=== PATIENT | female | born 1935 | race Caucasian/White ===

== ENCOUNTER 2017-02-01 10:15 | Inpatient (IN) | payer MEDICARE ==
[2017-02-09] MEDS ORDERED: CEFAZOLIN/Water 2 GM/20 ML SYRINGE ONE (06:18)
[2017-02-09] MEDS ORDERED: Bacitracin Zinc Ointment 30 gm TUBE ONE (06:37)
[2017-02-09] MEDS ORDERED: Sodium Chloride 0.9% 10 ML ONE (06:37)
[2017-02-09] MEDS ORDERED: Thrombin 5000 UNITS/5 ML VIAL ONE (06:37)
[2017-02-09] MEDS ORDERED: Bupivacaine/Epinephrine 0.25% 30 ML VIAL ONE (06:37)
[2017-02-09] MEDS ORDERED: Lidocaine 1% w/Epinephrine 1:200K 30 ML VIAL ONE (06:51)
[2017-02-09] MEDS ORDERED: Fentanyl 100 MCG/2 ML VIAL ONE ×2 (07:19→09:41)
[2017-02-09] MEDS ORDERED: Phenylephrine 10 MG/NS 250 ML 250 ML ONE (07:19)
[2017-02-09] MEDS ORDERED: SUGAMMADEX SODIUM 200 MG/2 ML VIAL ONE (09:25)
[2017-02-09] MEDS ORDERED: Docusate 100 MG CAP PO PRN (09:29)
[2017-02-09] MEDS ORDERED: Mag-Al 1200 mg/1200 mg/30 ML UDCUP PO PRN (09:29)
[2017-02-09] MEDS ORDERED: Acetaminophen 325 MG TAB PO PRN (09:29)
[2017-02-09] MEDS ORDERED: Fleet Enema 133 ML BOT PR PRN (09:29)
[2017-02-09] MEDS ORDERED: Labetalol HCl 100 MG/20 ML VIAL ONE ×2 (09:36→14:13)
[2017-02-09] MEDS ORDERED: Ondansetron HCl/PF 4 MG/2 ML Vial IVP PRN (09:39)
[2017-02-09] MEDS ORDERED: Promethazine HCl 25 MG/ML VIAL SLOW IVP PRN (09:39)
[2017-02-09] MEDS ORDERED: Promethazine HCl 25 MG/ML VIAL IM PRN (09:39)
[2017-02-09] MEDS ORDERED: Morphine PF 1 MG/ML SYR IVP PRN (10:07)
--- NOTE | 2017-02-09 10:35 | OP ---
DATE OF PROCEDURE: 02/09/2017 SURGEON: Ellis Mayo M.D. FAMILY SERVICE ASSISTANT: Emanuel Guzman PA-C. OR: OR #12 WOUND TYPE: Type 1 wound. This surgery was done also with Dr. Piter Magallanes for the abdominal access. PREPROCEDURE DIAGNOSIS: Normal pressure hydrocephalus. POSTPROCEDURE DIAGNOSIS: Normal pressure hydrocephalus. PROCEDURE: Placement of right frontal ventriculoperitoneal shunt with programmable valve set at 1.0. PROCEDURE: After informed consent was obtained from the patient and her son, the patient was brought to OR 12. Proper patient pause and identification was carried out. The right frontal and right pos tauricular, right cervical, thoracic, and abdominal region were all sterilely cleansed, prepared, and draped following the clipping of hair. Right frontal Warren's point was identified and a semilunar incision drawn out along with a small incision drawn out in the postauricular side on the right side. Dr. Magallanes will dictate his portion of the surgery. After proper patient pause and identification , the right frontal wound and right postauricular wounds were opened, retractor placed in a lauren hole fashion. The dura coagulated. A peritoneal tube was then passed with a shunt passer from the posta uricular wound to the abdominal cavity and the peritoneal catheter placed into the abdominal region w ith Dr. Magallanes's assistance. I then brought the proximal end of the peritoneal catheter to the rig t frontal lauren hole and secured a programmable valve, Strata programmable valve to the catheter. The dura was then opened, the alea coagulated and a ventricular catheter placed with return of CSF. This was secured to the proximal portion of the valve. Copious irrigation occurred throughout and CSF fl ow was confirmed. The wounds were all closed in anatomic layers following meticulous hemostasis. Th e patient then emerged from anesthesia.
[2017-02-09] MEDS: Sodium Chloride 0.9% 1,000 ML IV SCH ×2 (11:46→22:45)
[2017-02-09] MEDS: HYDROcodone/Acetaminophen 7.5/325 mg Tablet PO PRN (13:35)
[2017-02-09] MEDS: CEFAZOLIN/Water 2 GM/20 ML SYRINGE SLOW IVP SCH ×2 (13:36→22:40)
[2017-02-09] MEDS ORDERED: Glycopyrrolate 0.2 MG/ML 5 ML SYRINGE ONE (14:13)
[2017-02-09] MEDS ORDERED: Propofol 200 MG/20 ML VIAL ONE (14:13)
[2017-02-09] MEDS ORDERED: Lidocaine 1% PF 5 ML VIAL ONE (14:13)
[2017-02-09] MEDS ORDERED: Ondansetron HCl/PF 4 MG/2 ML Vial ONE (14:13)
[2017-02-09] MEDS ORDERED: Esmolol 100 MG/10 ML VIAL ONE (14:13)
[2017-02-09] MEDS ORDERED: ePHEDrine/0.9% NaCl/PF SYRINGE 50 mg/10 ml ONE (14:13)
[2017-02-09] MEDS: Promethazine HCl 25 MG/ML VIAL IM PRN (16:07)
[2017-02-09] MEDS: Atorvastatin Calcium 10 MG TAB PO SCH (20:13)
[2017-02-09] MEDS ORDERED: FLU VACC TS2017-18 (>65YR) 0.5 ML SYRINGE IM ONE (21:00)
--- NOTE | 2017-02-09 21:39 | OP ---
DATE OF PROCEDURE: 02/09/2017 PREOPERATIVE DIAGNOSIS: Hydrocephalus. POSTOPERATIVE DIAGNOSIS: Hydrocephalus. PROCEDURE: Diagnostic laparoscopy placement of permanent intraabdominal drain (abdominal portion of PROCESS COACH shunt). SURGEON: Devon Magallanes M.D. ANESTHESIA: General. ESTIMATED BLOOD LOSS: Minimal. COMPLICATIONS: None. SPECIMEN: None. FINDINGS: The tip of the PROCESS COACH shunt is up over the liver. TECHNIQUE: The patient was taken to the operating room and placed supine on the table. After genera l anesthetic was obtained, scalp, chest, abdomen, and pelvis were all irrigated using sterile solutio n. Curved incision made below the umbilicus. Cautery was used to dissect down to and score the fasc ia. Abdominal cavity was entered bluntly using a Vanessa clamp. Holding stitch of PDS was placed on e ach side of the fascia, a 5 mm trocar was placed. High-flow pneumoperitoneum was obtained. Left abd ominal 5-mm port was placed as well. The PROCESS COACH shunt scalp portion was performed by Neurosurgery and th e tubing passed to the upper abdomen. Here, a counterincision was made and the 5 mm trocar was used to make entrance into the abdominal cavity. Hemostat was used to pass the tubing into the upper abdo men was placed up over the liver. It was pulled into the abdomen as the redundancy in the tubing is less than by Neurosurgery above. Once all the redundant tubing was pulled into the abdomen and Dr. Nieves taylor is happy from the on head side. Both port sites were infiltrated using local anesthetic. Ther e was no obvious bleeding in the abdomen or damage to any intraabdominal structures. Ports were celeste maria l under direct visualization without bleeding. Pneumoperitoneum was let down. PDS was used to ajay se the fascial defect below the umbilicus. All incisions were irrigated and closed using 4-0 Monocry l and Dermabond. The patient went to recovery in stable condition. All instrument counts, needle co unts, and lap counts were correct.
[2017-02-10] MEDS: Sodium Chloride 0.9% 1,000 ML IV SCH ×2 (01:07→18:43)
[2017-02-10] MEDS: CEFAZOLIN/Water 2 GM/20 ML SYRINGE SLOW IVP SCH (05:47)
[2017-02-10] MEDS: HYDROcodone/Acetaminophen 7.5/325 mg Tablet PO PRN (07:44)
[2017-02-10] MEDS ORDERED: Ondansetron HCl/PF 4 MG/2 ML Vial SLOW IVP PRN (08:25)
[2017-02-10] MEDS ORDERED: VIT D3 PO SCH (09:00)
[2017-02-10] MEDS ORDERED: [UNRECOGNIZED DRUG - OTHER] PO SCH (09:00)
[2017-02-10] MEDS ORDERED: BERBERINE HCL PO SCH (09:00)
[2017-02-10] MEDS ORDERED: [UNRECOGNIZED DRUG - OTHER] PO SCH (09:00)
[2017-02-10] MEDS ORDERED: HOPS PO SCH (09:00)
--- NOTE | 2017-02-10 09:02 | PRG ---
DATE OF SERVICE: 02/10/2017 Ms. Fine is postoperative day 1 from right frontal ventriculoperitoneal shunt for normal pressu re hydrocephalus. Her shunt is set at 1.0. She has no complaints this morning except for incisional pain as expected. Her wounds are healing well. Neurologically appears a bit more interactive comp ared to before surgery already. We will transfer her to the floor, she lives with family. We will m keshav sure that there are no needs at home from a social work standpoint. I anticipate dismissal in next 24-48 hours.
[2017-02-10] MEDS ORDERED: Clopidogrel Bisulfate 75 MG TAB ONE (09:09)
[2017-02-10] MEDS: Donepezil HCl 5 MG TAB PO SCH (09:11)
[2017-02-10] MEDS: Lisinopril 20 MG TAB PO SCH (09:22)
[2017-02-10] MEDS: Promethazine HCl 25 MG/ML VIAL IM PRN (11:07)
[2017-02-10] MEDS ORDERED: Insulin Regular 300 UNITS/3 ML VIAL SC PRN (12:20)
[2017-02-10] MEDS ORDERED: Dextrose 5% in Water 1,000 ML IV PRN (12:20)
[2017-02-10] MEDS ORDERED: Dextrose 50% Abboject 50 ML SYRINGE SLOW IVP PRN (12:20)
[2017-02-10] MEDS: traMADol HCl 50 MG TAB PO PRN (13:22)
[2017-02-10] MEDS: hydrALAZINE 20 MG/ML VIAL SLOW IVP PRN ×2 (14:29→22:26)
[2017-02-10] MEDS: Ondansetron HCl/PF 4 MG/2 ML Vial SLOW IVP PRN ×2 (15:28→22:26)
[2017-02-10] MEDS ORDERED: Cyanocobalamin (Vitamin B-12) 1,000 MCG TAB PO SCH (15:30)
[2017-02-10 15:36] LABS: #Lymphocytes 0.6 thou/uL (1.20-3.40); #Monocytes 0.3 thou/uL (0.11-0.59); #Neutrophils 11.8 thou/uL (1.40-6.50); %Eosinophils 0.2 % (0.0-10.0); %Monocytes 2.5 % (0.0-10.0); Hematocrit 40.2 % (36.0-47.0); Mean Platelet Volume 7.6 fL (7.4-10.4); Red Blood Cell (RBC) Count 4.16 mill/uL (4.20-5.40); White Blood Cell (WBC) Count 12.8 thou/uL (4.8-10.8)
[2017-02-10 16:00] LABS: ALT (SGPT) Less than 7 U/L (8-55); AST (SGOT) 10 U/L (5-34); Alkaline Phosphatase 66 U/L (40-150); Anion Gap 14 mmol/L (10-20); BUN (Urea Nitrogen) 17 mg/dL (9.8-20.1); Bilirubin, Total 0.8 mg/dL (0.2-1.2); Calc. Creatinine Clearance 74 mL/min (70-130); Calcium 9.4 mg/dL (7.8-10.44); Carbon Dioxide 22 mmol/L (23-31); Chloride 103 mmol/L (98-107); Estimated GFR-MDRD 73; Magnesium 1.8 mg/dL (1.6-2.6); Phosphorus 2.3 mg/dL (2.3-4.7); Protein, Total 6.7 g/dL (6.0-8.3)
--- NOTE | 2017-02-10 16:11 | RAD ---
PORTABLE SUPINE ABDOMEN: 02/10/17 HISTORY: Nausea. Bowel gas pattern unremarkable. Scattered stool and gas seen throughout the colon to the level of the rectum. No significant small bowel gas noted. No mass effect or abnormal calcification identified. IMPRESSION: Unremarkable bowel gas pattern. POS: REEMA
[2017-02-10] MEDS: Insulin Regular 300 UNITS/3 ML VIAL SC PRN (16:24)
--- NOTE | 2017-02-10 18:40 | PDOC.PN ---
- Subjective Encounter Start Date: 02/10/17 Encounter Start Time: 16:00 Patient seen and examined. Consult for med mngt. Nauseas - No vomiting. Mild gen abd pain. No fever/diarrhea. No overnight events - Objective Resuscitation Status: Resuscitation Status DNR:Do Not Resuscitate MAR Reviewed: Yes Vital Signs & Weight: Vital Signs (12 hours) Temp Pulse Pulse Pulse Resp BP BP 02/10/17 16:00 98.3 F 02/10/17 14:29 70 02/10/17 13:00 98.4 F 02/10/17 09:25 73 76 188/65 H 164/59 H 02/10/17 08:00 98.5 F 70 20 02/10/17 07:00 98.5 F Pulse Ox 02/10/17 16:00 02/10/17 14:29 02/10/17 13:00 02/10/17 09:25 02/10/17 08:00 97 02/10/17 07:00 Weight Weight 184 lb 1.376 oz Most Recent Monitor Data Heart Rate from ECG 91 NIBP 173/53 NIBP BP-Mean 126 Respiration from ECG 21 SpO2 98 I&O: 02/09/17 02/10/17 02/11/17 06:59 06:59 06:59 Intake Total 2153 719 Output Total 1999 103 Balance 153 616 Result Diagrams: 02/10/17 15:24 02/10/17 15:24 Additional Labs: Accuchecks 02/10/17 11:13 POC Glucose 234 H Radiology Reviewed by me: Yes (KUB - Neg) EKG Reviewed by me: Yes (Tele SR) Phys Exam - Physical Examination Constitutional: NAD Respiratory: no wheezing, no rales, no rhonchi, clear to auscultation bilateral Cardiovascular: RRR, no rub no heaves/pulsations Gastrointestinal: soft, no distention, positive bowel sounds mild gen tend, no rebound/guarding Musculoskeletal: no edema Neurological: non-focal, normal sensation, moves all 4 limbs Psychiatric: normal affect, A&O x 3 Dx/Plan - Plan DVT proph w/SCDs IMPRESSION: 1. DM2 2. HTN 3. HLD 4. Nausea 5. DNR 6. CKD 2 7. Vit B12 def PLAN: * Stat labs done/reviewed * Cont Zofran PRN * Add sliding scale - change XL Glipizide to short acting due to poor appetite. * DNR confirmed with son at bedside * KUB done/reviewed * Cont to monitor * Add Vit B12 * Will follow. Thank you for this consultation Review of Systems - Review of Systems Constitutional: negative: Fever, Chills, Sweats, Weakness, Malaise, Other Respiratory: negative: Cough, Dry, Shortness of Breath, Hemoptysis, SOB with Excertion, Pleuritic Pain, Sputum, Wheezing Cardiovascular: negative: Chest Pain, Palpitations, Orthopnea, Paroxysmal Noc. Dyspnea, Edema, Light Headedness - Medications/Allergies Allergies/Adverse Reactions: Allergies Allergy/AdvReac Type Severity Reaction Status Date / Time No Known Allergies Allergy Verified 02/01/17 11:08 Medications: Current Medications Acetaminophen (Tylenol) 650 mg PO Q4H PRN PRN Reason: Headache/Fever Or Mild Pain Hydrocodone Bitart/Acetaminophen ([place] 7.5/325) 1 tab PO Q4H PRN PRN Reason: Moderate Pain (4-6) Last Admin: 02/10/17 07:44 Dose: 1 tab Al Hydroxide/Mg Hydroxide (Maalox) 30 ml PO Q6H PRN PRN Reason: Indigestion Atorvastatin Calcium (Lipitor) 10 mg PO HS [facility] Last Admin: 02/09/17 20:13 Dose: 10 mg Cyanocobalamin (Vitamin B-12) 1,000 mcg PO DAILY [facility] Dextrose/Water (Dextrose 50%) 25 gm SLOW IVP PRN PRN PRN Reason: Hypoglycemia Docusate Sodium (Colace) 100 mg PO BID NIKIA Donepezil HCl (Aricept) 5 mg PO QAM [facility] Last Admin: 02/10/17 09:11 Dose: 5 mg Glipizide (Glucotrol Xl) 5 mg PO QAM [facility] Last Admin: 02/10/17 09:11 Dose: 5 mg Glucagon (Glucagon) 1 mg IM PRN PRN PRN Reason: Hypoglycemia Hydralazine HCl (Apresoline) 10 mg SLOW IVP Q4H PRN PRN Reason: SBP GREATER THAN 160 Last Admin: 02/10/17 14:29 Dose: 10 mg Sodium Chloride (Normal Saline 0.9%) 1,000 mls @ 75 mls/hr IV .[id number] [facility] Last Admin: 02/10/17 01:07 Dose: 1,000 mls Dextrose/Water (D5w) 1,000 mls @ 0 mls/hr IV .Q0M PRN; As Directed PRN Reason: Hypoglycemia Insulin Human Regular (Humulin R) 0 units SC .MILD SLIDING SCALE PRN PRN Reason: Mild Correctional Scale Last Admin: 02/10/17 16:24 Dose: 4 unit Insulin Human Regular (Humulin R) 0 units SC .BEDTIME SLIDING SC PRN PRN Reason: Bedtime Correctional Scale Lisinopril (Zestril) 20 mg PO QAM [facility] Last Admin: 02/10/17 09:22 Dose: 20 mg Morphine Sulfate (Duramorph) 2 mg IVP Q1H PRN PRN Reason: Severe Pain (7-10) Ondansetron HCl (Zofran) 4 mg SLOW IVP Q6H PRN PRN Reason: Nausea/Vomiting Last Admin: 02/10/17 15:28 Dose: 4 mg Promethazine HCl (Phenergan) 12.5 mg IM Q6H PRN PRN Reason: Nausea/Vomiting Last Admin: 02/10/17 11:07 Dose: 12.5 mg Sodium Biphosphate/Sodium Phosphate (Fleet Enema) 133 ml LA ONE PRN PRN Reason: Constipation Stop: 02/13/17 15:00 Sodium Chloride (Flush - Normal Saline) 10 ml IVF PRN PRN PRN Reason: Saline Flush Tramadol HCl (Ultram) 50 mg PO Q6H PRN PRN Reason: Pain Last Admin: 02/10/17 13:22 Dose: 50 mg
[2017-02-10] MEDS: Atorvastatin Calcium 10 MG TAB PO SCH (20:31)
[2017-02-10] MEDS: Docusate 100 MG CAP PO SCH (20:31)
[2017-02-11] MEDS: hydrALAZINE 20 MG/ML VIAL SLOW IVP PRN ×3 (05:48→16:03)
[2017-02-11] MEDS: Sodium Chloride 0.9% 1,000 ML IV SCH ×2 (05:49→17:17)
[2017-02-11] MEDS: Donepezil HCl 5 MG TAB PO SCH (09:08)
[2017-02-11] MEDS: Lisinopril 20 MG TAB PO SCH (09:08)
[2017-02-11] MEDS: Docusate 100 MG CAP PO SCH ×2 (09:08→19:59)
[2017-02-11] MEDS: glipiZIDE 5 MG TAB PO SCH (09:08)
[2017-02-11] MEDS: Cyanocobalamin (Vitamin B-12) 1,000 MCG TAB PO SCH (09:12)
--- NOTE | 2017-02-11 10:22 | PRG ---
DATE OF SERVICE: 02/11/2017 Ms. Fine is postoperative day 2 from placement of a ventriculoperitoneal shunt for hydrocephalu s. She states her headache and nausea are improved today. She did have a headache, nausea, and vomi ting yesterday. Her wounds are healing well. Neurologically, she is alert and follows commands. I think at this point she has not yet mobilized due to nausea and I think we should work on rehab for t he patient.
[2017-02-11] MEDS: Ondansetron HCl/PF 4 MG/2 ML Vial SLOW IVP PRN ×2 (10:35→16:03)
[2017-02-11] MEDS: traMADol HCl 50 MG TAB PO PRN (11:02)
--- NOTE | 2017-02-11 15:38 | CON ---
DATE OF SERVICE: 02/11/2017 SERVICE: Pulmonary Medicine. REASON FOR CONSULTATION: ICU patient. HISTORY OF PRESENT ILLNESS: This is an 81-year-old white female with past medical history significan t for normal pressure hydrocephalus. She was in her usual state of health until several months ago. She started having increasing gait disturbances. She was also incontinent. MRI was consistent with NPH. An LP was attempted, but apparently not much volume was pulled off. We are not certain whethe r or not she is going to respond to volume removal so far as what the relative is suggesting. Either way, she was sent for an elective procedure which was a WATERPROOF BAG SEWER shunt. She is postop day #1 from this pr ocedure. She continues to have persistent headache across the bifrontal region and nausea. She is n ot tolerating much p.o. and IV fluids have been initiated. She remains in the ICU for close observat ion and high requirements for nursing care. PAST MEDICAL HISTORY: 1. Hypertension. 2. Dyslipidemia. 3. Vitamin B12 deficiency. 4. Normal pressure hydrocephalus. PAST SURGICAL HISTORY: 1. Hip replacement, bilateral. 2. Right knee replacement. 3. Appendectomy. SOCIAL HISTORY: Negative for alcohol, tobacco or illicit drug use. FAMILY HISTORY: Noncontributory. ALLERGIES: No known drug allergies. MEDICATIONS: List of inpatient medications were reviewed. No specific updates were made at this ti wa. REVIEW OF SYSTEMS: General, head, ears, eyes, nose, throat, cardiovascular, respiratory, GI, , mus culoskeletal, neurologic and skin is negative except as mentioned in the HPI. PHYSICAL EXAMINATION: VITAL SIGNS: Afebrile, pulse 84, blood pressure 173/59, respirations 17, saturation 94% on room air. GENERAL: The patient is awake and alert, in no apparent distress. LUNGS: Decent air entry with no prolonged expiratory phase, wheezing, rhonchi or crackles. HEART: Normal rate, regular. ABDOMEN: Soft, nontender, nondistended, bowel sounds positive. MUSCULOSKELETAL: No cyanosis or clubbing. There is no pitting in bilateral lower extremities. NEUROLOGIC: Grossly nonfocal. LABORATORY DATA: WBC returning a 12.8 following that procedure, hemoglobin 13.1, platelets 222,000. INR 1.0. Basic metabolic profile and liver function studies were unremarkable. Blood sugars ranged 114-234. IMAGING: Abdominal x-ray demonstrates unremarkable bowel gas pattern. ASSESSMENT: 1. Normal pressure hydrocephalus, status post ventriculoperitoneal drain. 2. Type 2 diabetes mellitus. 3. Dementia. PLAN: We will continue to monitor the patient closely in the ICU. Once she is cleared for transitio n to the floor by Neurosurgery, then she can go. She has no acute cardiac or pulmonary issues. Repe at laboratories will be performed tomorrow morning.
--- NOTE | 2017-02-11 15:51 | CT ---
NONCONTRAST CT HEAD: Date: 02-11-17 History: Mental status change. Hypertension. Patient had ventriculoperitoneal shunt catheter placed o ne day ago. Vomiting. Comparison: MRI brain 11-30-16 FINDINGS: There has been interval placement of a ventriculoperitoneal shunt catheter via a right frontal approa ch with the tip coursing across the midline and the tip at the midline in the region of the septum pe llucidum near the level of the foramen of Monro. The ventricular system has decreased in size compare d to the prior study although there is persistent mild dilatation of the occipital and temporal horns of the left lateral ventricle. There is a right sided subdural collection which was not seen on the prior MRI examination which may represent small subdural hematoma. This measures approximately 5-6 mm in greatest transverse dimensio ns. There also evidence of pneumocephalus. There is slight shift of the midline structures to the lef t. No intraparenchymal hemorrhage is seen. There is no acute infarction identified. Again noted are c hronic small vessel ischemic changes as well as cerebral volume loss. Visualized paranasal sinuses and mastoid air cells are clear. Calvarial structures are intact aside f rom interval placement of ventriculoperitoneal shunt catheter. Skin clips are seen in the scalp soft tissues right anterior frontal region. IMPRESSION: 1. Interval placement of a right sided ventriculoperitoneal shunt catheter as described above with sm all amount of pneumocephalus. 2. Right subdural collection likely related to a small subdural hematoma measuring 5-6 mm in greates t transverse dimensions. There is slight mass effect on the right cerebral sulci with shift of midlin e structures to the left measuring 4 mm. 2. Increased density seen within the central canal at the level of the C1 vertebral body which may re present venous plexus as this circumferentially surrounds the central canal and the spinal cord. Mohr jose, if there is clinical concern, CT versus MRI of the cervical spine could be performed. POS: OFF
[2017-02-11] MEDS: Insulin Regular 300 UNITS/3 ML VIAL SC PRN (17:01)
[2017-02-11] MEDS: Scopolamine 1.5 mg/72 hour Patch TOP SCH (17:04)
[2017-02-11] MEDS: Promethazine HCl 25 MG/ML VIAL IM PRN (17:07)
--- NOTE | 2017-02-11 18:40 | PDOC.PN ---
- Subjective Encounter Start Date: 02/11/17 Encounter Start Time: 18:40 Patient seen and examined. Nausea+. No overnight events - Objective Resuscitation Status: Resuscitation Status DNR:Do Not Resuscitate MAR Reviewed: Yes Vital Signs & Weight: Vital Signs (12 hours) Temp Pulse Resp BP Pulse Ox 02/11/17 16:03 165/46 H 02/11/17 16:00 98.6 F 02/11/17 13:17 165/46 H 02/11/17 12:00 98.4 F 02/11/17 09:08 165/46 H 02/11/17 08:00 97.9 F 77 15 99 Weight Admit Weight 174 lb Weight 174 lb 2.643 oz Most Recent Monitor Data Heart Rate from ECG 101 NIBP 150/44 NIBP BP-Mean 68 Respiration from ECG 15 SpO2 96 I&O: 02/10/17 02/11/17 02/12/17 06:59 06:59 06:59 Intake Total 2153 1584 843 Output Total 1999 103 4 Balance 153 1481 839 Result Diagrams: 02/12/17 04:36 02/12/17 04:36 Additional Labs: Accuchecks 02/11/17 02/11/17 02/11/17 16:59 11:40 05:14 POC Glucose 225 H 186 H 114 H 02/10/17 21:07 POC Glucose 172 H EKG Reviewed by me: Yes (Tele SR) Phys Exam - Physical Examination Constitutional: NAD Respiratory: no wheezing, no rhonchi Cardiovascular: RRR, no rub Gastrointestinal: soft, non-tender, no distention, positive bowel sounds Musculoskeletal: no edema Neurological: moves all 4 limbs Dx/Plan - Plan DVT proph w/SCDs IMPRESSION: 1. DM2 - on sliding scale with Glipizide 2. HTN - uncontrolled. 3. HLD 4. Nausea - ?etio, KUB negative 5. DNR - confirmed 6. CKD 2 7. Vit B12 def - on replacement PLAN: * Add Amlodipine * Cont Zofran PRN * Cont to monitor * Cont other meds as below Review of Systems - Review of Systems Respiratory: negative: Cough, Dry, Shortness of Breath, Hemoptysis, SOB with Excertion, Pleuritic Pain, Sputum, Wheezing Cardiovascular: negative: Chest Pain, Palpitations, Orthopnea, Paroxysmal Noc. Dyspnea, Edema, Light Headedness - Medications/Allergies Allergies/Adverse Reactions: Allergies Allergy/AdvReac Type Severity Reaction Status Date / Time No Known Allergies Allergy Verified 02/01/17 11:08 Medications: Current Medications Acetaminophen (Tylenol) 650 mg PO Q4H PRN PRN Reason: Headache/Fever Or Mild Pain Hydrocodone Bitart/Acetaminophen ([place] 7.5/325) 1 tab PO Q4H PRN PRN Reason: Moderate Pain (4-6) Last Admin: 02/10/17 07:44 Dose: 1 tab Al Hydroxide/Mg Hydroxide (Maalox) 30 ml PO Q6H PRN PRN Reason: Indigestion Atorvastatin Calcium (Lipitor) 10 mg PO HS [facility] Last Admin: 02/10/17 20:31 Dose: Not Given Cyanocobalamin (Vitamin B-12) 1,000 mcg PO DAILY [facility] Last Admin: 02/11/17 09:12 Dose: Not Given Dextrose/Water (Dextrose 50%) 25 gm SLOW IVP PRN PRN PRN Reason: Hypoglycemia Docusate Sodium (Colace) 100 mg PO BID [facility] Last Admin: 02/11/17 09:08 Dose: 100 mg Donepezil HCl (Aricept) 5 mg PO QAM [facility] Last Admin: 02/11/17 09:08 Dose: 5 mg Glipizide (Glucotrol) 5 mg PO DAILY[facility] Last Admin: 02/11/17 09:08 Dose: 5 mg Glucagon (Glucagon) 1 mg IM PRN PRN PRN Reason: Hypoglycemia Hydralazine HCl (Apresoline) 10 mg SLOW IVP Q4H PRN PRN Reason: SBP GREATER THAN 160 Last Admin: 02/11/17 16:03 Dose: 10 mg Sodium Chloride (Normal Saline 0.9%) 1,000 mls @ 75 mls/hr IV .[id number] [facility] Last Admin: 02/11/17 17:17 Dose: 1,000 mls Dextrose/Water (D5w) 1,000 mls @ 0 mls/hr IV .Q0M PRN; As Directed PRN Reason: Hypoglycemia Insulin Human Regular (Humulin R) 0 units SC .MILD SLIDING SCALE PRN PRN Reason: Mild Correctional Scale Last Admin: 02/11/17 17:01 Dose: 3 unit Insulin Human Regular (Humulin R) 0 units SC .BEDTIME SLIDING SC PRN PRN Reason: Bedtime Correctional Scale Lisinopril (Zestril) 20 mg PO QAM [facility] Last Admin: 02/11/17 09:08 Dose: 20 mg Morphine Sulfate (Duramorph) 2 mg IVP Q1H PRN PRN Reason: Severe Pain (7-10) Ondansetron HCl (Zofran) 4 mg SLOW IVP Q6H PRN PRN Reason: Nausea/Vomiting Last Admin: 02/11/17 16:03 Dose: 4 mg Promethazine HCl (Phenergan) 12.5 mg IM Q6H PRN PRN Reason: Nausea/Vomiting Last Admin: 02/11/17 17:07 Dose: 12.5 mg Scopolamine (Transderm Scop) 1.5 mg TOP Q3D [facility] Last Admin: 02/11/17 17:04 Dose: 1.5 mg Sodium Biphosphate/Sodium Phosphate (Fleet Enema) 133 ml [place] ONE PRN PRN Reason: Constipation Stop: 02/13/17 15:00 Sodium Chloride (Flush - Normal Saline) 10 ml IVF PRN PRN PRN Reason: Saline Flush Tramadol HCl (Ultram) 50 mg PO Q6H PRN PRN Reason: Pain Last Admin: 02/11/17 11:02 Dose: 50 mg
[2017-02-11] MEDS ORDERED: Amlodipine 5 MG TAB PO SCH (18:45)
[2017-02-11] MEDS ORDERED: Nitroglycerin 2% Ointment 1 INCH/1 GM Packet TOP PRN (18:54)
[2017-02-11] MEDS: Atorvastatin Calcium 10 MG TAB PO SCH (19:59)
[2017-02-11] MEDS ORDERED: cloNIDine 0.1mg/24 Hour PATCH TD SCH (20:00)
[2017-02-12] MEDS: hydrALAZINE 20 MG/ML VIAL SLOW IVP PRN ×4 (00:11→17:08)
[2017-02-12] MEDS: Ondansetron HCl/PF 4 MG/2 ML Vial SLOW IVP PRN ×2 (00:13→10:16)
[2017-02-12] MEDS: Promethazine HCl 25 MG/ML VIAL IM PRN ×2 (01:42→10:32)
[2017-02-12 04:52] LABS: #Lymphocytes 0.7 thou/uL (1.20-3.40); #Monocytes 0.9 thou/uL (0.11-0.59); #Neutrophils 13.7 thou/uL (1.40-6.50); %Basophils 0.2 % (0.0-1.0); %Eosinophils 0.2 % (0.0-10.0); %Lymphocytes 4.5 % (21.0-51.0); %Monocytes 5.6 % (0.0-10.0); Hematocrit 39.5 % (36.0-47.0); Mean Platelet Volume 7.5 fL (7.4-10.4); Red Blood Cell (RBC) Count 4.09 mill/uL (4.20-5.40); White Blood Cell (WBC) Count 15.2 thou/uL (4.8-10.8)
[2017-02-12 05:14] LABS: Anion Gap 10 mmol/L (10-20); BUN (Urea Nitrogen) 17 mg/dL (9.8-20.1); Calc. Creatinine Clearance 84 mL/min (70-130); Calcium 9.6 mg/dL (7.8-10.44); Carbon Dioxide 25 mmol/L (23-31); Chloride 106 mmol/L (98-107); Estimated GFR-MDRD 87; Phosphorus 1.7 mg/dL (2.3-4.7)
[2017-02-12] MEDS: Sodium Chloride 0.9% 1,000 ML IV SCH ×2 (05:45→17:09)
[2017-02-12] MEDS ORDERED: SODIUM CHLORIDE 0.9% IVPB SCH (06:00)
[2017-02-12] MEDS ORDERED: SODIUM PHOSPHATE IVPB SCH (06:00)
[2017-02-12] MEDS ORDERED: Amlodipine 5 MG TAB PO SCH ×2 (09:00→11:00)
--- NOTE | 2017-02-12 09:20 | PRG ---
DATE OF SERVICE: 02/12/2017 Ms. Fine is postoperative day 3 from placement of a right frontal ventriculoperitoneal shunt. Head CT was satisfactory yesterday, in fact ventricles were a bit more decompressed than I anticipate d. With her programmable valve set at 1.0 there is a small amount of subdural hygroma around the rig ht hemisphere, as such, we increased her valve setting to 1.5. She was able to tolerate sitting in a chair. The biggest issue at this point has been nausea and vomiting. Her headache is improving. N eurologically, she is intact. We will continue to try and mobilize her. I suspect her nausea and vo miting are simply related to sensitivity to medication and anesthesia. This should obviously improve with time. She would likely be a good candidate for rehab.
[2017-02-12] MEDS: glipiZIDE 5 MG TAB PO SCH (09:25)
[2017-02-12] MEDS: Lisinopril 20 MG TAB PO SCH ×2 (09:25→20:28)
[2017-02-12] MEDS: Donepezil HCl 5 MG TAB PO SCH (09:26)
[2017-02-12] MEDS: Docusate 100 MG CAP PO SCH ×2 (09:28→20:28)
[2017-02-12] MEDS: Cyanocobalamin (Vitamin B-12) 1,000 MCG TAB PO SCH (09:28)
--- NOTE | 2017-02-12 18:12 | PDOC.PN ---
- Subjective Encounter Start Date: 02/12/17 Encounter Start Time: 12:30 Patient seen and examined. Nausea - worse with head movement. Poor appetite No overnight events - Objective Resuscitation Status: Resuscitation Status DNR:Do Not Resuscitate MAR Reviewed: Yes Vital Signs & Weight: Vital Signs (12 hours) Temp Pulse Pulse Pulse Pulse Resp BP 02/12/17 17:59 02/12/17 17:08 184/63 H 02/12/17 16:08 107 H 104 H 113 H 02/12/17 11:47 184/63 H 02/12/17 10:16 184/63 H 02/12/17 09:25 184/63 H 02/12/17 08:00 97.8 F 100 20 BP BP BP BP 02/12/17 17:59 127/93 H 02/12/17 17:08 02/12/17 16:08 189/66 H 180/71 H 177/72 H 02/12/17 11:47 02/12/17 10:16 02/12/17 09:25 02/12/17 08:00 Weight Admit Weight 174 lb Weight 179 lb 7.3 oz Most Recent Monitor Data Heart Rate from ECG 114 NIBP 177/72 NIBP BP-Mean 102 Respiration from ECG 27 SpO2 93 I&O: 02/11/17 02/12/17 02/13/17 06:59 06:59 06:59 Intake Total 1584 1789 1022 Output Total 103 4 3 Balance 1481 1785 1019 Result Diagrams: 02/12/17 04:36 02/12/17 04:36 Additional Labs: Accuchecks 02/12/17 02/12/17 02/11/17 11:46 05:53 21:09 POC Glucose 163 H 161 H 180 H EKG Reviewed by me: Yes (Tele SR) Phys Exam - Physical Examination Constitutional: NAD Respiratory: no wheezing, no rhonchi Cardiovascular: RRR, no rub Gastrointestinal: soft, non-tender, positive bowel sounds Musculoskeletal: no edema Neurological: non-focal, moves all 4 limbs Dx/Plan - Plan cont current plan of care, plan discussed w/ family, 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 HTN - uncontrolled. 2. DM2 - on sliding scale with Glipizide 3. HLD 4. Nausea - on Scopolamine patch 5. DNR 6. CKD 2 7. Vit B12 def - on replacement PLAN: * Increase Amlodipine to 5 mg BID * Increase Lisinopril to 20 mg BID * Cont Clonidine 0.1 mg patch * Cont PRN meds * Cont Zofran PRN * Cont to monitor * Cont other meds as below Review of Systems - Review of Systems Constitutional: negative: Fever, Chills, Sweats, Weakness, Malaise Respiratory: negative: Cough, Dry, Shortness of Breath, Hemoptysis, SOB with Excertion, Pleuritic Pain, Sputum, Wheezing Cardiovascular: negative: Chest Pain, Palpitations, Orthopnea, Paroxysmal Noc. Dyspnea, Edema, Light Headedness Gastrointestinal: Nausea. negative: Vomiting, Abdominal Pain, Diarrhea, Constipation, Melena, Hematochezia - Medications/Allergies Allergies/Adverse Reactions: Allergies Allergy/AdvReac Type Severity Reaction Status Date / Time No Known Allergies Allergy Verified 02/01/17 11:08 Medications: Current Medications Acetaminophen (Tylenol) 650 mg PO Q4H PRN PRN Reason: Headache/Fever Or Mild Pain Hydrocodone Bitart/Acetaminophen ([place] 7.5/325) 1 tab PO Q4H PRN PRN Reason: Moderate Pain (4-6) Last Admin: 02/10/17 07:44 Dose: 1 tab Al Hydroxide/Mg Hydroxide (Maalox) 30 ml PO Q6H PRN PRN Reason: Indigestion Amlodipine Besylate (Norvasc) 5 mg PO BID [facility] Atorvastatin Calcium (Lipitor) 10 mg PO HS [facility] Last Admin: 02/11/17 19:59 Dose: Not Given Clonidine (Gopxtupe-Tzo-6 Patch) 0.1 mg TD Q7D@1999 [facility] Last Admin: 02/11/17 19:59 Dose: 0.1 mg Cyanocobalamin (Vitamin B-12) 1,000 mcg PO DAILY [facility] Last Admin: 02/12/17 09:28 Dose: Not Given Dextrose/Water (Dextrose 50%) 25 gm SLOW IVP PRN PRN PRN Reason: Hypoglycemia Docusate Sodium (Colace) 100 mg PO BID [facility] Last Admin: 02/12/17 09:28 Dose: Not Given Donepezil HCl (Aricept) 5 mg PO QAM [facility] Last Admin: 02/12/17 09:26 Dose: 5 mg Glipizide (Glucotrol) 5 mg PO DAILY-[facility] Last Admin: 02/12/17 09:25 Dose: 5 mg Glucagon (Glucagon) 1 mg IM PRN PRN PRN Reason: Hypoglycemia Hydralazine HCl (Apresoline) 10 mg SLOW IVP Q4H PRN PRN Reason: SBP GREATER THAN 160 Last Admin: 02/12/17 17:08 Dose: 10 mg Dextrose/Water (D5w) 1,000 mls @ 0 mls/hr IV .Q0M PRN; As Directed PRN Reason: Hypoglycemia Sodium Chloride (Normal Saline 0.9%) 1,000 mls @ 50 mls/hr IV .Q20H [facility] Last Admin: 02/12/17 17:09 Dose: 1,000 mls Insulin Human Regular (Humulin R) 0 units SC .MILD SLIDING SCALE PRN PRN Reason: Mild Correctional Scale Last Admin: 02/11/17 17:01 Dose: 3 unit Insulin Human Regular (Humulin R) 0 units SC .BEDTIME SLIDING SC PRN PRN Reason: Bedtime Correctional Scale Lisinopril (Zestril) 20 mg PO BID [facility] Morphine Sulfate (Duramorph) 2 mg IVP Q1H PRN PRN Reason: Severe Pain (7-10) Nitroglycerin (Nitro-Bid 2% Ointment) 0.5 inch TOP Q8H PRN PRN Reason: SBP Greater Than 180 Ondansetron HCl (Zofran) 4 mg SLOW IVP Q6H PRN PRN Reason: Nausea/Vomiting Last Admin: 02/12/17 10:16 Dose: 4 mg Promethazine HCl (Phenergan) 12.5 mg IM Q6H PRN PRN Reason: Nausea/Vomiting Last Admin: 02/12/17 10:32 Dose: 12.5 mg Scopolamine (Transderm Scop) 1.5 mg TOP Q3D [facility] Last Admin: 02/11/17 17:04 Dose: 1.5 mg Sodium Biphosphate/Sodium Phosphate (Fleet Enema) 133 ml [place] ONE PRN PRN Reason: Constipation Stop: 02/13/17 15:00 Sodium Chloride (Flush - Normal Saline) 10 ml IVF PRN PRN PRN Reason: Saline Flush Tramadol HCl (Ultram) 50 mg PO Q6H PRN PRN Reason: Pain Last Admin: 02/11/17 11:02 Dose: 50 mg
[2017-02-12] MEDS: Amlodipine 5 MG TAB PO SCH (20:29)
[2017-02-12] MEDS: Atorvastatin Calcium 10 MG TAB PO SCH (20:29)
--- NOTE | 2017-02-12 20:30 | PRG ---
DATE OF SERVICE: 02/12/2017 SERVICE: Pulmonary Medicine. INTERVAL HISTORY: The patient is doing great from a respiratory standpoint. She has no cardiovascular issues. Her headache is clear. She is tolerating a little bit of p.o. Her nausea is also much better. Otherwise, she is returning to her usual state of health. PHYSICAL EXAMINATION: VITAL SIGNS: Afebrile, pulse 101, blood pressure 127/93, respirations 16, saturation 94% on room air. GENERAL: The patient is awake and alert, in no apparent distress. LUNGS: Decent air entry. There is no prolonged expiratory phase or rhonchi. HEART: Normal rate, regular. ABDOMEN: Soft, nontender, nondistended. Bowel sounds positive. MUSCULOSKELETAL: No cyanosis or clubbing. No pitting in the bilateral lower extremities. LABORATORY DATA: WBC 15.2, hemoglobin 12.5, platelets 237,000. Basic metabolic profile is unremarkable. Phosphorus 1.7. ASSESSMENT: 1. Normal pressure hydrocephalus, status post ventriculoperitoneal shunt. 2. Type 2 diabetes mellitus. 3. Dementia. 4. Hypokalemia. 5. Hypophosphatemia. PLAN: We will replace the potassium and phosphorus. The patient is stable for transition out of the ICU. When she ends up on the floor, Pulmonary will sign off. ANTHONYD
[2017-02-13 05:28] LABS: #Lymphocytes 1.3 thou/uL (1.20-3.40); #Monocytes 0.9 thou/uL (0.11-0.59); %Basophils 0.2 % (0.0-1.0); %Eosinophils 0.2 % (0.0-10.0); %Lymphocytes 12.6 % (21.0-51.0); Hematocrit 35.8 % (36.0-47.0); Mean Platelet Volume 7.8 fL (7.4-10.4); White Blood Cell (WBC) Count 10.2 thou/uL (4.8-10.8)
[2017-02-13 05:43] LABS: Anion Gap 9 mmol/L (10-20); BUN (Urea Nitrogen) 16 mg/dL (9.8-20.1); Calc. Creatinine Clearance 90 mL/min (70-130); Calcium 8.9 mg/dL (7.8-10.44); Carbon Dioxide 28 mmol/L (23-31); Chloride 104 mmol/L (98-107); Estimated GFR-MDRD Greater than 90
[2017-02-13] MEDS: Cyanocobalamin (Vitamin B-12) 1,000 MCG TAB PO SCH (09:58)
[2017-02-13] MEDS: Donepezil HCl 5 MG TAB PO SCH (09:58)
[2017-02-13] MEDS: Docusate 100 MG CAP PO SCH ×2 (09:58→22:16)
[2017-02-13] MEDS: Lisinopril 20 MG TAB PO SCH ×2 (09:58→22:16)
[2017-02-13] MEDS: Amlodipine 5 MG TAB PO SCH ×2 (09:58→22:16)
[2017-02-13] MEDS: glipiZIDE 5 MG TAB PO SCH (09:58)
[2017-02-13] MEDS ORDERED: Potassium Chloride 40 MEQ in Sodium Chloride 0.9% 500 ML IVPB SCH (10:00)
[2017-02-13] MEDS: Sodium Chloride 0.9% 1,000 ML IV SCH (12:19)
--- NOTE | 2017-02-13 13:22 | PDOC.PN ---
- Subjective Encounter Start Date: 02/13/17 Encounter Start Time: 13:20 Subjective: feels much better today.Nausea & dizziness has improved -: no chest pain/SOB.no AP. no fever/chills - Objective Resuscitation Status: Resuscitation Status DNR:Do Not Resuscitate MAR Reviewed: Yes Vital Signs & Weight: Vital Signs (12 hours) Temp Pulse Resp BP BP Pulse Ox 02/13/17 12:05 98.0 F 81 16 178/65 H 95 02/13/17 09:58 88 166/61 H 02/13/17 08:00 98.2 F 88 24 H 02/13/17 07:45 98.2 F 88 24 H 169/73 H 95 02/13/17 04:38 99.1 F 89 16 154/65 H 93 L Weight Admit Weight 174 lb Weight 179 lb 7.3 oz Most Recent Monitor Data Heart Rate from ECG 114 NIBP 177/72 NIBP BP-Mean 102 Respiration from ECG 27 SpO2 93 I&O: 02/12/17 02/13/17 02/14/17 06:59 06:59 06:59 Intake Total 1789 1022 Output Total 4 3 Balance 1785 1019 Result Diagrams: 02/13/17 04:44 02/13/17 04:44 Additional Labs: Accuchecks 02/13/17 02/12/17 11:22 22:44 POC Glucose 144 H 121 H Phys Exam - Physical Examination Constitutional: NAD HEENT: PERRLA, moist MMs, sclera anicteric, oral pharynx no lesions, 2+ tonsils surgical site on r scalp w dressing.no oozing Neck: no nodes, no JVD, supple, full ROM Respiratory: no wheezing, no rales, no rhonchi, clear to auscultation bilateral Cardiovascular: RRR, no significant murmur Gastrointestinal: soft, non-tender, no distention, positive bowel sounds Musculoskeletal: no edema, pulses present Neurological: non-focal, normal sensation, moves all 4 limbs Psychiatric: normal affect, A&O x 3 Skin: no rash Dx/Plan (1) Hypokalemia Code(s): E87.6 - HYPOKALEMIA Status: Acute (2) NPH (normal pressure hydrocephalus) Code(s): G91.2 - (IDIOPATHIC) NORMAL PRESSURE HYDROCEPHALUS Status: Chronic Comment: s/p ACCOUNTING INTERN shunt with improved symptoms (3) HTN (hypertension) Code(s): I10 - ESSENTIAL (PRIMARY) HYPERTENSION Status: Chronic Qualifiers: Hypertension type: essential hypertension Qualified Code(s): I10 - Essential (primary) hypertension (4) S/P ACCOUNTING INTERN shunt Status: Acute Comment: POD #4 (5) DM2 (diabetes mellitus, type 2) Status: Chronic Qualifiers: Diabetes mellitus complication status: with hyperglycemia (6) CKD (chronic kidney disease) Code(s): N18.9 - CHRONIC KIDNEY DISEASE, UNSPECIFIED Status: Acute Qualifiers: Chronic kidney disease stage: stage 2 (mild) Qualified Code(s): N18.2 - Chronic kidney disease, stage 2 (mild) (7) B12 deficiency Code(s): E53.8 - DEFICIENCY OF OTHER SPECIFIED B GROUP VITAMINS Status: Chronic - Plan plan discussed w/ family, 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 on ISS.on Glipizide -: DC IVF as nausea is better,to avoid HTN. -: add prn anti hypertensives -: will continue to follow.replace & recheck potassium/magnesium * . Review of Systems - Review of Systems Constitutional: Weakness, Malaise. negative: Fever, Chills, Sweats, Other Respiratory: negative: Cough, Dry, Shortness of Breath, Hemoptysis, SOB with Excertion, Pleuritic Pain, Sputum, Wheezing Cardiovascular: negative: Chest Pain, Palpitations, Orthopnea, Paroxysmal Noc. Dyspnea, Edema, Light Headedness, Other Gastrointestinal: negative: Nausea, Vomiting, Abdominal Pain, Diarrhea, Constipation, Melena, Hematochezia, Other Genitourinary: negative: Dysuria, Frequency, Incontinence, Hematuria, Retention , Other Musculoskeletal: negative: Neck Pain, Shoulder Pain, Arm Pain, Back Pain, Hand Pain, Leg Pain, Foot Pain, Other Neurological: negative: Weakness, Numbness, Incoordination, Change in Speech, Confusion, Seizures, Other - Medications/Allergies Allergies/Adverse Reactions: Allergies Allergy/AdvReac Type Severity Reaction Status Date / Time No Known Allergies Allergy Verified 02/01/17 11:08 Medications: Current Medications Acetaminophen (Tylenol) 650 mg PO Q4H PRN PRN Reason: Headache/Fever Or Mild Pain Hydrocodone Bitart/Acetaminophen ([place] 7.5/325) 1 tab PO Q4H PRN PRN Reason: Moderate Pain (4-6) Last Admin: 02/10/17 07:44 Dose: 1 tab Al Hydroxide/Mg Hydroxide (Maalox) 30 ml PO Q6H PRN PRN Reason: Indigestion Amlodipine Besylate (Norvasc) 5 mg PO BID [facility] Last Admin: 02/13/17 09:58 Dose: 5 mg Atorvastatin Calcium (Lipitor) 10 mg PO HS [facility] Last Admin: 02/12/17 20:29 Dose: 10 mg Clonidine (Gmgxnvip-Ecs-9 Patch) 0.1 mg TD Q7D@1999 [facility] Last Admin: 02/11/17 19:59 Dose: 0.1 mg Cyanocobalamin (Vitamin B-12) 1,000 mcg PO DAILY [facility] Last Admin: 02/13/17 09:58 Dose: 1,000 mcg Dextrose/Water (Dextrose 50%) 25 gm SLOW IVP PRN PRN PRN Reason: Hypoglycemia Docusate Sodium (Colace) 100 mg PO BID [facility] Last Admin: 02/13/17 09:58 Dose: 100 mg Donepezil HCl (Aricept) 5 mg PO QAM [facility] Last Admin: 02/13/17 09:58 Dose: 5 mg Glipizide (Glucotrol) 5 mg PO DAILY-AC [facility] Last Admin: 02/13/17 09:58 Dose: 5 mg Glucagon (Glucagon) 1 mg IM PRN PRN PRN Reason: Hypoglycemia Hydralazine HCl (Apresoline) 10 mg SLOW IVP Q4H PRN PRN Reason: SBP GREATER THAN 160 Last Admin: 02/12/17 17:08 Dose: 10 mg Dextrose/Water (D5w) 1,000 mls @ 0 mls/hr IV .Q0M PRN; As Directed PRN Reason: Hypoglycemia Sodium Chloride (Normal Saline 0.9%) 1,000 mls @ 50 mls/hr IV .Q20H [facility] Last Admin: 02/13/17 12:19 Dose: Not Given Potassium Chloride 40 meq/ (Sodium Chloride) 520 mls @ 130 mls/hr IVPB 1000 [facility] Stop: 02/13/17 13:59 Last Admin: 02/13/17 12:18 Dose: 520 mls Insulin Human Regular (Humulin R) 0 units SC .MILD SLIDING SCALE PRN PRN Reason: Mild Correctional Scale Last Admin: 02/11/17 17:01 Dose: 3 unit Insulin Human Regular (Humulin R) 0 units SC .BEDTIME SLIDING SC PRN PRN Reason: Bedtime Correctional Scale Lisinopril (Zestril) 20 mg PO BID [facility] Last Admin: 02/13/17 09:58 Dose: 20 mg Morphine Sulfate (Duramorph) 2 mg IVP Q1H PRN PRN Reason: Severe Pain (7-10) Nitroglycerin (Nitro-Bid 2% Ointment) 0.5 inch TOP Q8H PRN PRN Reason: SBP Greater Than 180 Ondansetron HCl (Zofran) 4 mg SLOW IVP Q6H PRN PRN Reason: Nausea/Vomiting Last Admin: 02/12/17 10:16 Dose: 4 mg Promethazine HCl (Phenergan) 12.5 mg IM Q6H PRN PRN Reason: Nausea/Vomiting Last Admin: 02/12/17 10:32 Dose: 12.5 mg Scopolamine (Transderm Scop) 1.5 mg TOP Q3D [facility] Last Admin: 02/11/17 17:04 Dose: 1.5 mg Sodium Biphosphate/Sodium Phosphate (Fleet Enema) 133 ml [place] ONE PRN PRN Reason: Constipation Stop: 02/13/17 15:00 Sodium Chloride (Flush - Normal Saline) 10 ml IVF PRN PRN PRN Reason: Saline Flush Tramadol HCl (Ultram) 50 mg PO Q6H PRN PRN Reason: Pain Last Admin: 02/11/17 11:02 Dose: 50 mg
[2017-02-13] MEDS ORDERED: cloNIDine 0.1 MG TAB PO PRN (13:25)
--- NOTE | 2017-02-13 16:10 | PRG ---
DATE OF SERVICE: 02/13/2017 SUBJECTIVE: Candice Fine has no complaints. She says she is feeling better. She actually amb ulated with physical therapy today. She feels like her gait a little more stable. OBJECTIVE: VITAL SIGNS: She is afebrile, heart rate 81, blood pressure is 159/69, respiratory rate 16, oximetry is 95 on room air. LUNGS: Clear. LABORATORY DATA: White count 10.2, hemoglobin 11.6, platelets 213. Sodium 138, potassium 3.1, chlor barbara 104, bicarbonate 28, BUN 16, creatinine 0.6, glucose 114. IMPRESSION: 1. Status post ventriculoperitoneal shunt for normal pressure hydrocephalus. 2. Diabetes. She actually looks better than I would have expected. Daughters pleased with her appe ravin. We will continue to follow.
[2017-02-13] MEDS: Atorvastatin Calcium 10 MG TAB PO SCH (22:16)
[2017-02-14 05:53] LABS: #Basophils 0.1 thou/uL (0.0-0.2); #Eosinphils 0.1 thou/uL (0.0-0.7); #Lymphocytes 1.6 thou/uL (1.20-3.40); #Monocytes 0.9 thou/uL (0.11-0.59); #Neutrophils 5.7 thou/uL (1.40-6.50); %Basophils 0.6 % (0.0-1.0); %Eosinophils 0.8 % (0.0-10.0); %Lymphocytes 19.6 % (21.0-51.0); %Monocytes 11.3 % (0.0-10.0); Hematocrit 37.4 % (36.0-47.0); Mean Platelet Volume 7.6 fL (7.4-10.4); Red Blood Cell (RBC) Count 3.89 mill/uL (4.20-5.40); White Blood Cell (WBC) Count 8.3 thou/uL (4.8-10.8)
[2017-02-14 06:06] LABS: Anion Gap 12 mmol/L (10-20); BUN (Urea Nitrogen) 11 mg/dL (9.8-20.1); Calc. Creatinine Clearance 94 mL/min (70-130); Calcium 9.1 mg/dL (7.8-10.44); Carbon Dioxide 27 mmol/L (23-31); Chloride 102 mmol/L (98-107); Estimated GFR-MDRD Greater than 90
[2017-02-14 07:31] VITALS: BMI 28.0
[2017-02-14] MEDS: glipiZIDE 5 MG TAB PO SCH (08:56)
[2017-02-14] MEDS: Donepezil HCl 5 MG TAB PO SCH (08:56)
[2017-02-14] MEDS: Lisinopril 20 MG TAB PO SCH ×2 (08:56→21:27)
[2017-02-14] MEDS: Docusate 100 MG CAP PO SCH ×2 (08:56→21:28)
[2017-02-14] MEDS: Cyanocobalamin (Vitamin B-12) 1,000 MCG TAB PO SCH (08:56)
[2017-02-14] MEDS: Amlodipine 5 MG TAB PO SCH ×2 (08:57→21:28)
--- NOTE | 2017-02-14 14:48 | PRG ---
DATE OF SERVICE: 02/14/2017 SUBJECTIVE: Candice Fine had no complaints. She was oriented to person. She was trying to climb out of bed when I walked in. The bed alarm was adjusted to be more sensitive with the nurse's help. OBJECTIVE: VITAL SIGNS: She is afebrile, heart rate 64, blood pressure is 177/71, respiratory rate is 14, oxime try is 96. LUNGS: Clear. IMPRESSION: 1. Status post ventriculoperitoneal shunting, clinically stable. 2. Dementia. 3. Do not resuscitate status. PLAN: Continue supportive care.
--- NOTE | 2017-02-14 15:33 | PDOC.PN ---
- Subjective Encounter Start Date: 02/14/17 Encounter Start Time: 15:31 Subjective: feels much better,. walked w Pt. -: no nausea/dizziness. ate better - Objective Resuscitation Status: Resuscitation Status DNR:Do Not Resuscitate MAR Reviewed: Yes Vital Signs & Weight: Vital Signs (12 hours) Temp Pulse Resp BP BP BP Pulse Ox 02/14/17 11:37 98.1 F 64 14 157/65 H 96 02/14/17 08:57 78 02/14/17 08:56 177/71 H 02/14/17 08:00 97.5 F L 78 16 02/14/17 07:23 98.1 F 78 14 161/72 H 92 L 02/14/17 06:49 177/71 H 02/14/17 05:15 98.4 F 75 15 177/71 H 93 L 02/14/17 04:00 98.4 F 75 15 177/71 H 93 L Weight Admit Weight 174 lb Weight 178 lb 11.2 oz Most Recent Monitor Data Heart Rate from ECG 114 NIBP 177/72 NIBP BP-Mean 102 Respiration from ECG 27 SpO2 93 I&O: 02/13/17 02/14/17 02/15/17 06:59 06:59 06:59 Intake Total 1022 900 Output Total 3 Balance 1019 900 Result Diagrams: 02/14/17 05:20 02/14/17 05:20 Additional Labs: Accuchecks 02/14/17 02/14/17 02/13/17 11:43 05:31 20:34 POC Glucose 111 H 98 99 02/13/17 16:03 POC Glucose 140 H Laboratory Tests 02/10/17 02/12/17 02/13/17 15:24 04:36 04:44 Potassium 4.4 3.5 3.1 L Magnesium 02/13/17 02/14/17 04:44 05:20 Potassium 3.6 Magnesium 2.0 Phys Exam - Physical Examination Constitutional: NAD HEENT: PERRLA, moist MMs, sclera anicteric, oral pharynx no lesions Neck: no nodes, no JVD, supple, full ROM Respiratory: no wheezing, no rales, no rhonchi, clear to auscultation bilateral Cardiovascular: RRR, no significant murmur, no rub, gallop Gastrointestinal: soft, non-tender, no distention, positive bowel sounds Musculoskeletal: no edema, pulses present Neurological: non-focal, normal sensation, moves all 4 limbs Psychiatric: normal affect, A&O x 3 Skin: no rash Dx/Plan (1) HTN (hypertension) Code(s): I10 - ESSENTIAL (PRIMARY) HYPERTENSION Status: Chronic Qualifiers: Hypertension type: essential hypertension Qualified Code(s): I10 - Essential (primary) hypertension (2) NPH (normal pressure hydrocephalus) Code(s): G91.2 - (IDIOPATHIC) NORMAL PRESSURE HYDROCEPHALUS Status: Chronic Comment: s/p WATER QUALITY MANAGER shunt with improved symptoms (3) S/P WATER QUALITY MANAGER shunt Status: Acute Comment: POD #4 (4) DM2 (diabetes mellitus, type 2) Status: Chronic Qualifiers: Diabetes mellitus complication status: with hyperglycemia (5) CKD (chronic kidney disease) Code(s): N18.9 - CHRONIC KIDNEY DISEASE, UNSPECIFIED Status: Acute Qualifiers: Chronic kidney disease stage: stage 2 (mild) Qualified Code(s): N18.2 - Chronic kidney disease, stage 2 (mild) (6) B12 deficiency Code(s): E53.8 - DEFICIENCY OF OTHER SPECIFIED B GROUP VITAMINS Status: Chronic (7) Hypokalemia Code(s): E87.6 - HYPOKALEMIA Status: Resolved - Plan DVT proph w/SCDs BP still high.increase amlodipine further. monitor. -: clinically stable. -: will follow. Potassium improved * . Review of Systems - Review of Systems Constitutional: Weakness. negative: Fever, Chills, Sweats, Malaise, Other ENT: negative: Ear Pain, Ear Discharge, Nose Pain, Nose Discharge, Nose Congestion, Mouth Pain, Mouth Swelling, Throat Pain, Throat Swelling, Other Respiratory: negative: Cough, Dry, Shortness of Breath, Hemoptysis, SOB with Excertion, Pleuritic Pain, Sputum, Wheezing Cardiovascular: negative: Chest Pain, Palpitations, Orthopnea, Paroxysmal Noc. Dyspnea, Edema, Light Headedness, Other Gastrointestinal: negative: Nausea, Vomiting, Abdominal Pain, Diarrhea, Constipation, Melena, Hematochezia, Other Genitourinary: negative: Dysuria, Frequency, Incontinence, Hematuria, Retention , Other Musculoskeletal: negative: Neck Pain, Shoulder Pain, Arm Pain, Back Pain, Hand Pain, Leg Pain, Foot Pain, Other Neurological: negative: Weakness, Numbness, Incoordination, Change in Speech, Confusion, Seizures, Other - Medications/Allergies Allergies/Adverse Reactions: Allergies Allergy/AdvReac Type Severity Reaction Status Date / Time No Known Allergies Allergy Verified 02/01/17 11:08 Medications: Current Medications Acetaminophen (Tylenol) 650 mg PO Q4H PRN PRN Reason: Headache/Fever Or Mild Pain Hydrocodone Bitart/Acetaminophen ([place] 7.5/325) 1 tab PO Q4H PRN PRN Reason: Moderate Pain (4-6) Last Admin: 02/10/17 07:44 Dose: 1 tab Al Hydroxide/Mg Hydroxide (Maalox) 30 ml PO Q6H PRN PRN Reason: Indigestion Amlodipine Besylate (Norvasc) 10 mg PO BID [facility] Last Admin: 02/14/17 08:57 Dose: 10 mg Atorvastatin Calcium (Lipitor) 10 mg PO HS [facility] Last Admin: 02/13/17 22:16 Dose: 10 mg Clonidine (Catapres) 0.1 mg PO Q4H PRN PRN Reason: SBP>170 Last Admin: 02/14/17 06:49 Dose: 0.1 mg Cyanocobalamin (Vitamin B-12) 1,000 mcg PO DAILY [facility] Last Admin: 02/14/17 08:56 Dose: 1,000 mcg Dextrose/Water (Dextrose 50%) 25 gm SLOW IVP PRN PRN PRN Reason: Hypoglycemia Docusate Sodium (Colace) 100 mg PO BID [facility] Last Admin: 02/14/17 08:56 Dose: 100 mg Donepezil HCl (Aricept) 5 mg PO QAM [facility] Last Admin: 02/14/17 08:56 Dose: 5 mg Glipizide (Glucotrol) 5 mg PO DAILY-AC [facility] Last Admin: 02/14/17 08:56 Dose: 5 mg Glucagon (Glucagon) 1 mg IM PRN PRN PRN Reason: Hypoglycemia Hydralazine HCl (Apresoline) 10 mg SLOW IVP Q4H PRN PRN Reason: SBP GREATER THAN 160 Last Admin: 02/12/17 17:08 Dose: 10 mg Dextrose/Water (D5w) 1,000 mls @ 0 mls/hr IV .Q0M PRN; As Directed PRN Reason: Hypoglycemia Insulin Human Regular (Humulin R) 0 units SC .MILD SLIDING SCALE PRN PRN Reason: Mild Correctional Scale Last Admin: 02/11/17 17:01 Dose: 3 unit Insulin Human Regular (Humulin R) 0 units SC .BEDTIME SLIDING SC PRN PRN Reason: Bedtime Correctional Scale Lisinopril (Zestril) 20 mg PO BID [facility] Last Admin: 02/14/17 08:56 Dose: 20 mg Morphine Sulfate (Duramorph) 2 mg IVP Q1H PRN PRN Reason: Severe Pain (7-10) Nitroglycerin (Nitro-Bid 2% Ointment) 0.5 inch TOP Q8H PRN PRN Reason: SBP Greater Than 180 Ondansetron HCl (Zofran) 4 mg SLOW IVP Q6H PRN PRN Reason: Nausea/Vomiting Last Admin: 02/12/17 10:16 Dose: 4 mg Promethazine HCl (Phenergan) 12.5 mg IM Q6H PRN PRN Reason: Nausea/Vomiting Last Admin: 02/12/17 10:32 Dose: 12.5 mg Scopolamine (Transderm Scop) 1.5 mg TOP Q3D [facility] Last Admin: 02/11/17 17:04 Dose: 1.5 mg Sodium Chloride (Flush - Normal Saline) 10 ml IVF PRN PRN PRN Reason: Saline Flush Tramadol HCl (Ultram) 50 mg PO Q6H PRN PRN Reason: Pain Last Admin: 02/11/17 11:02 Dose: 50 mg
[2017-02-14] MEDS: Scopolamine 1.5 mg/72 hour Patch TOP SCH (17:22)
[2017-02-14] MEDS: Atorvastatin Calcium 10 MG TAB PO SCH (21:28)
[2017-02-15 04:37] LABS: #Eosinphils 0.2 thou/uL (0.0-0.7); #Lymphocytes 1.2 thou/uL (1.20-3.40); #Monocytes 0.7 thou/uL (0.11-0.59); #Neutrophils 4.2 thou/uL (1.40-6.50); %Basophils 0.6 % (0.0-1.0); %Eosinophils 2.6 % (0.0-10.0); %Lymphocytes 18.9 % (21.0-51.0); %Monocytes 10.9 % (0.0-10.0); Hematocrit 37.1 % (36.0-47.0); Red Blood Cell (RBC) Count 3.88 mill/uL (4.20-5.40); White Blood Cell (WBC) Count 6.2 thou/uL (4.8-10.8)
[2017-02-15 04:43] LABS: Anion Gap 8 mmol/L (10-20); BUN (Urea Nitrogen) 12 mg/dL (9.8-20.1); Calc. Creatinine Clearance 88 mL/min (70-130); Calcium 8.7 mg/dL (7.8-10.44); Carbon Dioxide 30 mmol/L (23-31); Chloride 103 mmol/L (98-107); Estimated GFR-MDRD Greater than 90
[2017-02-15] MEDS: Lisinopril 20 MG TAB PO SCH (09:39)
[2017-02-15] MEDS: glipiZIDE 5 MG TAB PO SCH (09:39)
[2017-02-15] MEDS: Donepezil HCl 5 MG TAB PO SCH (09:40)
[2017-02-15] MEDS: Cyanocobalamin (Vitamin B-12) 1,000 MCG TAB PO SCH (09:40)
[2017-02-15] MEDS: Docusate 100 MG CAP PO SCH (09:40)
[2017-02-15] MEDS: Amlodipine 5 MG TAB PO SCH (09:40)
--- NOTE | 2017-02-15 12:21 | PRG ---
DATE OF SERVICE: 02/15/2017 This is a 15 minute subsequent patient evaluation. Ms. Yu is now postoperative day 6, having undergone a right frontal WOVEN PAPER HAT MENDER shunt placement. This morning the patient states she is doing well. Sh avril denies nausea or vomiting and states her headache is under much better control. She has been up wa lking with physical therapy, but the patient and her son noticed that her gait is slowly but surely i mproving. At this time, they have requested that she go home with home health with physical therapy set up and would not like to go to inpatient rehab. OBJECTIVE: The patient is at neurologic baseline. She is oriented to person and place, but states t he year is 1999, although she does understand that it is February and Gregoria is the upcoming holid ay. She is able to follow commands equally in all 4 extremities. Her incisions are healing well. At this time, once the patient is cleared medically she is able to discharge. I have placed a discha rge order and I have asked nursing staff to help set up home health physical therapy. I would like t he patient to remain off her aspirin for 7 days postoperatively. Ample opportunity was given to the patient and her son to discuss her questions and concerns and they are pleased with her outcome posto peratively.
[2017-02-15 12:27] VITALS: BP 155/67; TEMP 98.3
--- NOTE | 2017-02-15 14:20 | PRG ---
DATE OF SERVICE: 02/15/2017 SERVICE: Pulmonary Medicine INTERVAL HISTORY: The patient is doing very well from a respiratory standpoint. Her mentation is much improved. She has no headache, nausea, vomiting, or diarrhea. She is tolerating p.o. She is being considered for discharge from the hospital today. PHYSICAL EXAMINATION: VITAL SIGNS: Afebrile, pulse 66, blood pressure 155/67, respirations 20, saturation 93% on room air. GENERAL: The patient is awake, alert, in no apparent distress. LUNGS: Excellent air entry. No prolonged expiratory phase or wheezing. HEART: Normal rate, regular. ABDOMEN: Soft, nontender, nondistended. Bowel sounds positive. MUSCULOSKELETAL: No cyanosis or clubbing. No pitting in the bilateral lower extremities. LABORATORY DATA: WBC 6.2, hemoglobin 12.2, platelets 217,000. Basic metabolic profile is unremarkable with blood sugar that ranges from 126 to 178 ASSESSMENT: 1. Normal pressure hydrocephalus, status post SEMICONDUCTOR WAFERS MARKER drain. 2. Type 2 diabetes mellitus. 3. Dementia. 4. Hypokalemia, resolved. 5. Hypophosphatemia, resolved. PLAN: The patient is doing fantastic. She has no further requirement for inpatient Pulmonary or Critical Care opinion. As such, I will sign off. Please call with questions or concerns moving forward. LEONID
--- NOTE | 2017-02-15 15:34 | PDOC.PN ---
- Subjective Encounter Start Date: 02/15/17 Encounter Start Time: 15:31 Subjective: feels good. no new complaints. walking aroun din room by herself -: daughter at bedside - Objective Resuscitation Status: Resuscitation Status DNR:Do Not Resuscitate MAR Reviewed: Yes Vital Signs & Weight: Vital Signs (12 hours) Temp Pulse Resp BP BP Pulse Ox 02/15/17 11:05 98.3 F 66 20 155/67 H 93 L 02/15/17 09:40 82 02/15/17 09:39 149/74 H 02/15/17 08:05 97.9 F 82 16 133/75 96 02/15/17 04:00 98.7 F 65 94 H 133/73 94 L Weight Admit Weight 174 lb Weight 178 lb 9.191 oz Most Recent Monitor Data Heart Rate from ECG 114 NIBP 177/72 NIBP BP-Mean 102 Respiration from ECG 27 SpO2 93 I&O: 02/14/17 02/15/17 02/16/17 06:59 06:59 06:59 Intake Total 900 Balance 900 Result Diagrams: 02/15/17 03:52 02/15/17 03:52 Additional Labs: Accuchecks 02/15/17 02/15/17 02/14/17 11:12 06:04 21:01 POC Glucose 144 H 126 H 176 H 02/14/17 15:37 POC Glucose 99 Phys Exam - Physical Examination Constitutional: NAD HEENT: PERRLA, moist MMs, sclera anicteric, oral pharynx no lesions Neck: no nodes, no JVD, supple, full ROM Respiratory: no wheezing, no rales, no rhonchi, clear to auscultation bilateral Cardiovascular: RRR, no significant murmur Gastrointestinal: soft, non-tender, no distention, positive bowel sounds Musculoskeletal: no edema, pulses present Neurological: non-focal, normal sensation, moves all 4 limbs Psychiatric: normal affect, A&O x 3 Skin: no rash Dx/Plan (1) HTN (hypertension) Code(s): I10 - ESSENTIAL (PRIMARY) HYPERTENSION Status: Chronic Qualifiers: Hypertension type: essential hypertension Qualified Code(s): I10 - Essential (primary) hypertension (2) NPH (normal pressure hydrocephalus) Code(s): G91.2 - (IDIOPATHIC) NORMAL PRESSURE HYDROCEPHALUS Status: Chronic Comment: s/p MODEL ENGINE MECHANIC shunt with improved symptoms (3) S/P MODEL ENGINE MECHANIC shunt Status: Acute Comment: POD #4 (4) DM2 (diabetes mellitus, type 2) Status: Chronic Qualifiers: Diabetes mellitus complication status: with hyperglycemia (5) CKD (chronic kidney disease) Code(s): N18.9 - CHRONIC KIDNEY DISEASE, UNSPECIFIED Status: Acute Qualifiers: Chronic kidney disease stage: stage 2 (mild) Qualified Code(s): N18.2 - Chronic kidney disease, stage 2 (mild) (6) B12 deficiency Code(s): E53.8 - DEFICIENCY OF OTHER SPECIFIED B GROUP VITAMINS Status: Chronic (7) Hypokalemia Code(s): E87.6 - HYPOKALEMIA Status: Resolved - Plan DVT proph w/SCDs BP much improved. cont current meds.amlodipin eincreased yesterday -: Ok to DC home from IM stand point. -: encourgaed to keep BP log and f/u w PCP. * . Review of Systems - Review of Systems Constitutional: negative: Fever, Chills, Sweats, Weakness, Malaise, Other Respiratory: negative: Cough, Dry, Shortness of Breath, Hemoptysis, SOB with Excertion, Pleuritic Pain, Sputum, Wheezing Cardiovascular: negative: Chest Pain, Palpitations, Orthopnea, Paroxysmal Noc. Dyspnea, Edema, Light Headedness, Other Gastrointestinal: negative: Nausea, Vomiting, Abdominal Pain, Diarrhea, Constipation, Melena, Hematochezia, Other Genitourinary: negative: Dysuria, Frequency, Incontinence, Hematuria, Retention , Other Musculoskeletal: negative: Neck Pain, Shoulder Pain, Arm Pain, Back Pain, Hand Pain, Leg Pain, Foot Pain, Other Neurological: negative: Weakness, Numbness, Incoordination, Change in Speech, Confusion, Seizures, Other - Medications/Allergies Allergies/Adverse Reactions: Allergies Allergy/AdvReac Type Severity Reaction Status Date / Time No Known Allergies Allergy Verified 02/01/17 11:08 Medications: Current Medications Acetaminophen (Tylenol) 650 mg PO Q4H PRN PRN Reason: Headache/Fever Or Mild Pain Hydrocodone Bitart/Acetaminophen ([place] 7.5/325) 1 tab PO Q4H PRN PRN Reason: Moderate Pain (4-6) Last Admin: 02/10/17 07:44 Dose: 1 tab Al Hydroxide/Mg Hydroxide (Maalox) 30 ml PO Q6H PRN PRN Reason: Indigestion Amlodipine Besylate (Norvasc) 10 mg PO BID [facility] Last Admin: 02/15/17 09:40 Dose: 10 mg Atorvastatin Calcium (Lipitor) 10 mg PO HS [facility] Last Admin: 02/14/17 21:28 Dose: 10 mg Clonidine (Catapres) 0.1 mg PO Q4H PRN PRN Reason: SBP>170 Last Admin: 02/14/17 06:49 Dose: 0.1 mg Cyanocobalamin (Vitamin B-12) 1,000 mcg PO DAILY [facility] Last Admin: 02/15/17 09:40 Dose: 1,000 mcg Dextrose/Water (Dextrose 50%) 25 gm SLOW IVP PRN PRN PRN Reason: Hypoglycemia Docusate Sodium (Colace) 100 mg PO BID [facility] Last Admin: 02/15/17 09:40 Dose: 100 mg Donepezil HCl (Aricept) 5 mg PO QAM [facility] Last Admin: 02/15/17 09:40 Dose: 5 mg Glipizide (Glucotrol) 5 mg PO DAILY-AC [facility] Last Admin: 02/15/17 09:39 Dose: 5 mg Glucagon (Glucagon) 1 mg IM PRN PRN PRN Reason: Hypoglycemia Hydralazine HCl (Apresoline) 10 mg SLOW IVP Q4H PRN PRN Reason: SBP GREATER THAN 160 Last Admin: 02/12/17 17:08 Dose: 10 mg Dextrose/Water (D5w) 1,000 mls @ 0 mls/hr IV .Q0M PRN; As Directed PRN Reason: Hypoglycemia Insulin Human Regular (Humulin R) 0 units SC .MILD SLIDING SCALE PRN PRN Reason: Mild Correctional Scale Last Admin: 02/11/17 17:01 Dose: 3 unit Insulin Human Regular (Humulin R) 0 units SC .BEDTIME SLIDING SC PRN PRN Reason: Bedtime Correctional Scale Lisinopril (Zestril) 20 mg PO BID [facility] Last Admin: 02/15/17 09:39 Dose: 20 mg Morphine Sulfate (Duramorph) 2 mg IVP Q1H PRN PRN Reason: Severe Pain (7-10) Nitroglycerin (Nitro-Bid 2% Ointment) 0.5 inch TOP Q8H PRN PRN Reason: SBP Greater Than 180 Ondansetron HCl (Zofran) 4 mg SLOW IVP Q6H PRN PRN Reason: Nausea/Vomiting Last Admin: 02/12/17 10:16 Dose: 4 mg Promethazine HCl (Phenergan) 12.5 mg IM Q6H PRN PRN Reason: Nausea/Vomiting Last Admin: 02/12/17 10:32 Dose: 12.5 mg Scopolamine (Transderm Scop) 1.5 mg TOP Q3D NIKIA Last Admin: 02/14/17 17:22 Dose: 1.5 mg Sodium Chloride (Flush - Normal Saline) 10 ml IVF PRN PRN PRN Reason: Saline Flush Tramadol HCl (Ultram) 50 mg PO Q6H PRN PRN Reason: Pain Last Admin: 02/11/17 11:02 Dose: 50 mg
--- NOTE | 2017-02-16 14:44 | DIS ---
DATE OF ADMISSION: 02/09/2017 DATE OF DISCHARGE: 02/15/2017 DISCHARGE DIAGNOSES: Include, 1. Hydrocephalus. 2. Headache. 3. Hypertension. 4. Dyslipidemia. 5. Vitamin B12 deficiency. 6. Nausea and vomiting. HOSPITAL COURSE: Ms. Fine was admitted on 02/09/2017 to undergo a right SECURITY FIELD SUPERVISOR shunt placement wit izabella Mayo with the assistance of Dr. Piter Magallanes. The patient's surgery was without complicatio n. She was sent to recover in the CCU. She was kept in the CCU due to significant headache and naus ea and vomiting. Postoperative head CT was obtained showing significant improvement in the ventricul ar size. The patient's shunt was reprogrammed to 1.5 from 1.0, so that the ventricles were not over drained. Eventually, her nausea and vomiting improved significantly and she would be able to dischar ge home with home health on 02/15/2017. Her case was discussed several times with her family members at bedside. They were pleased with her outcome postoperatively. Appropriate patient followup appoi ntments were scheduled and at the time of discharge, the patient was doing well and appropriate educa tion and outpatient followups were scheduled.
== END 2017-02-15 17:13 | disposition home health service (06) | DRG 33 ==
LOC: SURG A 02-09 05:54 → CCU 02-09 11:38 → SJJU 02-12 16:42
PROVIDERS: ADMIT Surgery; ATTEND Surgery
PROC: 00160J6 Bypass Cerebral Ventricle to Peritoneal Cavity with Synthetic Substitute, Open Approach (ICD-10-PCS; principal; 2017-02-09)
DX: G91.2 (Idiopathic) normal pressure hydrocephalus (principal); E11.22 Type 2 diabetes mellitus with diabetic chronic kidney disease; F03.90 Unspecified dementia, unspecified severity, without behavioral disturbance, psychotic disturbance, mood disturbance, and anxiety; E11.65 Type 2 diabetes mellitus with hyperglycemia; E83.39 Other disorders of phosphorus metabolism; E87.6 Hypokalemia; Z66 Do not resuscitate; E78.5 Hyperlipidemia, unspecified; E53.8 Deficiency of other specified B group vitamins; Z96.643 Presence of artificial hip joint, bilateral; Z96.651 Presence of right artificial knee joint; I12.9 Hypertensive chronic kidney disease with stage 1 through stage 4 chronic kidney disease, or unspecified chronic kidney disease; N18.2 Chronic kidney disease, stage 2 (mild)
CPT/HCPCS: 36415; 36416; 70450; 74000; 80048; 80053; 83735; 84100; 85025; A4216; G8978-GP-CK; G8979-GP-CI; G8987-GO-CJ; G8988-GO-CI; J0360; J1815; J2001; J2405; J2550; J2704; J3010; J3370; J3480; J3490; J7050

== ENCOUNTER 2017-02-01 10:44 | Outpatient (CLI) | payer MEDICARE ==
[2017-02-01 12:34] LABS: Hematocrit 42.2 % (36.0-47.0); Mean Platelet Volume 7.5 fL (7.4-10.4); Red Blood Cell (RBC) Count 4.36 mill/uL (4.20-5.40); White Blood Cell (WBC) Count 6.5 thou/uL (4.8-10.8)
[2017-02-01 12:41] LABS: PTT 29.7 SEC (22.9-36.1); Prothrombin Time 13.5 SEC (12.0-14.7)
[2017-02-01 12:46] LABS: Anion Gap 12 mmol/L (10-20); BUN (Urea Nitrogen) 14 mg/dL (9.8-20.1); Calc. Creatinine Clearance 0 mL/min (70-130); Calcium 10.1 mg/dL (7.8-10.44); Carbon Dioxide 28 mmol/L (23-31); Chloride 106 mmol/L (98-107); Estimated GFR-MDRD 72
== END 2017-02-01 10:45 | disposition home or self-care (01) ==
LOC: LABBT 10:44
PROVIDERS: ATTEND Surgery
DX: Z01.818 Encounter for other preprocedural examination (principal); G91.9 Hydrocephalus, unspecified
CPT/HCPCS: 80048; 85027; 85610; 85730; 93005; 93010

== ENCOUNTER 2018-11-11 09:14 | Observation (INO) | payer MEDICARE ==
--- NOTE | 2018-11-11 10:18 | RAD ---
RADIOGRAPH CHEST 1 VIEW: DATE: 11/11/2018 HISTORY: 83-year-old female with altered mental status. Evaluate DRILL OPERATOR shunt catheter. FINDINGS: There are no airspace densities, pulmonary edema, pneumothorax, or cardiomegaly. The lateral costophr enic angles are sharp. Catheter descends the right side of the chest with no evidence of disruption of that portion. IMPRESSION: 1. No acute cardiopulmonary findings. 2. Intact thoracic portion of ventriculoperitoneal shunt catheter.
[2018-11-11] MEDS ORDERED: Meclizine HCl 25 MG TAB ONE (10:19)
[2018-11-11 10:21] LABS: #Basophils 0.1 thou/uL (0.0-0.2); #Eosinphils 0.1 thou/uL (0.0-0.7); #Lymphocytes 1.6 thou/uL (1.20-3.40); #Monocytes 0.7 thou/uL (0.11-0.59); #Neutrophils 6.2 thou/uL (1.40-6.50); %Basophils 0.8 % (0.0-1.0); %Eosinophils 1.4 % (0.0-10.0); %Lymphocytes 18.2 % (21.0-51.0); %Monocytes 7.8 % (0.0-10.0); %Neutrophils 71.9 % (42.0-75.0); Hemoglobin 14.7 g/dL (12.0-16.0); Mean Corpuscular HGB CONC 32.8 g/dL (32.0-36.0); Mean Corpuscular Hemoglobin 30.6 pg (27.0-31.0); Mean Corpuscular Volume 93.4 fL (78.0-98.0); Mean Platelet Volume 8.3 fL (7.4-10.4); Platelet Count 250 thou/uL (130-400); RBC Distribution Width 11.7 % (11.5-14.5); White Blood Cell (WBC) Count 8.6 thou/uL (4.8-10.8)
[2018-11-11 10:41] LABS: ALT (SGPT) 10 U/L (8-55); AST (SGOT) 21 U/L (5-34); Alkaline Phosphatase 68 U/L (40-150); Anion Gap 22 mmol/L (10-20); BUN (Urea Nitrogen) 40 mg/dL (9.8-20.1); Bilirubin, Total 0.8 mg/dL (0.2-1.2); CK (CPK) 67 U/L (29-168); Calc. Creatinine Clearance 0 mL/min (70-130); Calcium 10.5 mg/dL (7.8-10.44); Carbon Dioxide 24 mmol/L (23-31); Chloride 96 mmol/L (98-107); Estimated GFR-MDRD 27; Globulin 2.8 g/dL (2.4-3.5); Glucose 320 mg/dL (83-110); Lipase 42 U/L (8-78); Potassium 3.9 mmol/L (3.5-5.1); Protein, Total 6.8 g/dL (6.0-8.3); Sodium 138 mmol/L (136-145)
[2018-11-11 10:57] LABS: Bacteria/HPF None Seen HPF (None Seen); Bilirubin Negative (Negative); Blood, Urine Negative (Negative); Clarity Clear (Clear); Glucose, Urine (Dipstick) Normal (Negative); Leukocyte 25 Leu/uL (Negative); Nitrite Negative (Negative); Protein, Urine (Dipstick) Negative (Neg-Trace); RBC/HPF 0-3 HPF (0-3)
--- NOTE | 2018-11-11 11:30 | CT ---
CT BRAIN WITHOUT CONTRAST: Date: 11/11/18 INDICATION: 83-year-old female with GROUND SERVICE EQUIPMENT MECHANIC shunt placement with dizziness. COMPARISON: Prior exam dated 02/11/17. MRI brain dated 11/30/16. FINDINGS: Encephalomalacia surrounds the right frontal GROUND SERVICE EQUIPMENT MECHANIC shunt catheter. The catheter projects in the region o f the anterior horn of the left ventricle. The mild to moderately dilated ventricles appear slightly more prominent than the CT examination dated 02/11/17, but slightly less prominent than on the MRI of the brain dated 11/30/16, which was performed prior to the GROUND SERVICE EQUIPMENT MECHANIC shunt catheter placement. On the prior CT, there was extra-axial hemorrhage that also was slightly compressing the ventricles. The ventricu lar shunt catheter appears intact. Mild chronic small vessel white matter ischemic change and general ized cerebral and cerebellar atrophy is similar appearing. No midline shift is evident. No acute intr acranial hemorrhage is noted. Skull and extracranial soft tissues are within normal limits. IMPRESSION: 1. GROUND SERVICE EQUIPMENT MECHANIC shunt catheter segments that are visualized on the CT examination appear intact. 2. Shunt catheter projects into the anterior horn of the left lateral ventricle. 3. The prominent lateral ventricles may be related to ex vacuo dilatation from the patient's cerebra l atrophy. 4. No acute intracranial hemorrhage or gross infarct is evident. POS: DESTINY
--- NOTE | 2018-11-11 12:17 | PDOC.FPRHP ---
- History of Present Illness Chief Complaint: AMS, dizziness History of Present Illness: Patient is an 83F with a PMHx of normal pressure hydrocephalus s/p CORRECTIONAL FACILITY PSYCHIATRIST shunt in 2017, HTN, HLD, DM2, cognitive decline over the last several years without official diagnosis of dementia. Patient is accompanied by daughter who says patient has been complaining of being dizzy. 2-3 days ago she has stopped getting out of bed because she is too dizzy. Her speech has decreased, as she can usually carry on a conversation. Her speech is still comprehensible at this time, just short phrases. She will drink water if it is held up to her and will eat food if it is encouraged while laying in bed. However her hydration and appetite have decreased. The last time she was this dizzy was after she had the CORRECTIONAL FACILITY PSYCHIATRIST shunt placed until she acclimated to it. Has also been reporting of some knee pain. Denies recent falls. Patient at baseline can feed herself, do her own laundry, and read. Recently saw her PCP Dr. Bain in August, her EKG was normal at that time. ED Course: 1L NS, meclizine - Allergies/Adverse Reactions Allergies Allergy/AdvReac Type Severity Reaction Status Date / Time Penicillins Allergy Verified 11/11/18 14:00 - Home Medications Medication Instructions Recorded Confirmed Type Lisinopril [Zestril] 1 tab PO QAM 02/01/17 11/11/18 History Simvastatin [Zocor] 1 tab PO HS 02/01/17 11/11/18 History glipiZIDE [Glucotrol XL] 1 tab PO QAM 02/01/17 11/11/18 History Donepezil HCl [Aricept] 5 mg PO DAILY 11/11/18 11/11/18 History - History PMHx: normal pressure hydrocephalus s/p CORRECTIONAL FACILITY PSYCHIATRIST shunt , HTN, HLD, DM2 PSHx: CORRECTIONAL FACILITY PSYCHIATRIST shunt 2017, bilateral eye lens replacement, R knee surgery FHx: no history of kidney disease, heart disease. Social: No etoh, smoking, drug use - Review of Systems General: reports: fatigue. denies: fever/chills Eyes: denies: eye pain, vision changes ENT: denies: nasal congestion, rhinorrhea Respiratory: denies: cough, shortness of breath Cardiovascular: denies: chest pain, edema Gastrointestinal: reports: nausea, constipation. denies: vomiting, diarrhea Genitourinary: reports: incontinence. denies: dysuria Skin: denies: rashes, jaundice Musculoskeletal: reports: pain (R knee and lower leg ttp), arthritis/arthralgias Neurological: denies: numbness, seizure Psychological: denies: anxiety, depression - Vital signs BP: [128/63] HR: [97] RR: [16] Tmax: [97.5] Pox: [95]% on [RA] Wt: [82kg] - Physical Exam Constitutional: NAD, well developed HEENT: grossly normal hearing -HEENT: dry mucus membranes, no dentures in place Neck: supple, FROM Chest: no-tender to palpation Heart: RRR, normal S1/S2, pulses present Lungs: CTAB, no respiratory distress Abdomen: bowel sounds present -Abdomen: firm and ttp lower abdomen -Musculoskeletal: R knee and posterior calf ttp, decreased strength in both legs, arm strength intact, deconditioning Neurological: CN II-XII intact, normal sensation Skin: no jaundice -Skin: poor turgor Heme/Lymphatic: no unusual bruising or bleeding Psychiatric: normal mood and affect -Psychiatric: A&Ox1 FMR H&P: Results - Labs Result Diagrams: 11/11/18 09:56 11/11/18 09:56 Lab results: WBC 8.6 thou/uL (4.8-10.8) 11/11/18 09:56 Hgb 14.7 g/dL (12.0-16.0) 11/11/18 09:56 Hct 44.8 % (36.0-47.0) 11/11/18 09:56 MCV 93.4 fL (78.0-98.0) 11/11/18 09:56 Plt Count 250 thou/uL (130-400) 11/11/18 09:56 Neutrophils % 71.9 % (42.0-75.0) 11/11/18 09:56 Sodium 138 mmol/L (136-145) 11/11/18 09:56 Potassium 3.9 mmol/L (3.5-5.1) 11/11/18 09:56 Chloride 96 mmol/L (98-107) L 11/11/18 09:56 Carbon Dioxide 24 mmol/L (23-31) 11/11/18 09:56 BUN 40 mg/dL (9.8-20.1) H 11/11/18 09:56 Creatinine 1.81 mg/dL (0.6-1.1) H 11/11/18 09:56 Glucose 320 mg/dL (83-110) H 11/11/18 09:56 Calcium 10.5 mg/dL (7.8-10.44) H 11/11/18 09:56 Total Bilirubin 0.8 mg/dL (0.2-1.2) 11/11/18 09:56 AST 21 U/L (5-34) 11/11/18 09:56 ALT 10 U/L (8-55) 11/11/18 09:56 Alkaline Phosphatase 68 U/L (40-150) 11/11/18 09:56 Ammonia 16 umol/L (18-72) L 11/11/18 09:56 Creatine Kinase 67 U/L (29-168) 11/11/18 09:56 Serum Total Protein 6.8 g/dL (6.0-8.3) 11/11/18 09:56 Albumin 4.0 g/dL (3.4-4.8) 11/11/18 09:56 Lipase 42 U/L (8-78) 11/11/18 09:56 Urine Ketones Trace mg/dL (Negative) A 11/11/18 10:41 Urine Blood Negative (Negative) 11/11/18 10:41 Urine Nitrite Negative (Negative) 11/11/18 10:41 Ur Leukocyte Esterase 25 Tessa/uL (Negative) 11/11/18 10:41 Urine RBC 0-3 HPF (0-3) 11/11/18 10:41 Urine WBC 4-6 HPF (0-3) A 11/11/18 10:41 Ur Squamous Epith Cells 7-10 HPF (0-3) A 11/11/18 10:41 Urine Bacteria None Seen HPF (None Seen) 11/11/18 10:41 - EKG Interpretation EKG: Normal sinus rhythm, 1st degree block - Radiology Interpretation Chest x-ray Status: report reviewed by me (No acute cardiopulmonary processes, intact thoracic portion of CORRECTIONAL FACILITY PSYCHIATRIST shun catheter) CT scan - head Status: report reviewed by me (CORRECTIONAL FACILITY PSYCHIATRIST shunt catheter segments intact, shunt catheter projects into the anterior horn of the left lateral ventricle, prominent lateral ventricles may be related to ex vacuo dilatation from the patient's cerebral atroph, no acute intracranial hemorrhage or gross infarct) FMR H&P: A/P - Problem List (1) HLD (hyperlipidemia) Current Visit: Yes Status: Acute Code(s): E78.5 - HYPERLIPIDEMIA, UNSPECIFIED (2) Acute kidney injury Current Visit: Yes Status: Acute Code(s): N17.9 - ACUTE KIDNEY FAILURE, UNSPECIFIED (3) DM2 (diabetes mellitus, type 2) Current Visit: No Status: Chronic Qualifiers: Diabetes mellitus complication status: with hyperglycemia (4) HTN (hypertension) Current Visit: No Status: Chronic Code(s): I10 - ESSENTIAL (PRIMARY) HYPERTENSION Qualifiers: Hypertension type: essential hypertension Qualified Code(s): I10 - Essential (primary) hypertension (5) Right knee pain Current Visit: Yes Status: Acute Code(s): M25.561 - PAIN IN RIGHT KNEE (6) Constipation Current Visit: Yes Status: Acute Code(s): K59.00 - CONSTIPATION, UNSPECIFIED (7) S/P CORRECTIONAL FACILITY PSYCHIATRIST shunt Current Visit: No Status: Acute Comment: POD #4 (8) DVT (deep venous thrombosis) Current Visit: Yes Status: Acute Code(s): I82.409 - ACUTE EMBOLISM AND THOMBOS UNSP DEEP VN UNSP LOWER EXTREMITY - Plan Patient is a 83F with PMHx of HLD, HTN, DM2, and normal pressure hydrocephalus s /p CORRECTIONAL FACILITY PSYCHIATRIST shunt placed in 2017 presenting with TANNER likely 2/2 dehydration and right knee pain #TANNER likely 2/2 dehydration -Creatinine 1.81 up from 0.62 in 2017 -patient had been dizzy, the 1L and meclizine she received in the ED seemed to help -patient's daughter states she has had decreased PO intake the last several days because she has been bed-bound 2/2 dizziness and would eat and drink some of what was given to her -IVF -continue to monitor BMP #R DVT -patient has a remote hx of R knee surgery -R knee and posterior calf ttp -patient and patient's daughter deny recent fall -venous doppler positive for DVT -R knee xray shows degenerative changes -risks and benefits of anticoagulation discussed with DAJUANA (son). He elected to start eliquis tonight. #Deconditioning -patient has been bed-bound the last 2-3 days -PT/OT consult #Constipation -patient has not had bm in a few days -abdomen firm and lower abdomen ttp -sennokot ordered, continue to monitor #S/P CORRECTIONAL FACILITY PSYCHIATRIST Shunt -CT showed no acute changes to dilation of ventricles at this time, with intracranial and intrathoracic portions of shunt in place -stable #HTN -bp 128/63 in the ED -hold home lisinopril until TANNER resolves -prn hydralyzine #HLD -continue home statin: stimvastatin -continue home asa #DM2 -hold home glipizide for now, due to TANNER -BG 320 in ED -mild ISS -accuchecks ACHS -continue to monitor #Cognitive Decline -continue home donepezil Diet: HH puree DVT: lovenox, renal dosing Code: DNR Dispo: obs for TANNER management with fluids and evaluation for DVT FMR H&P: Upper Level - Pertinent history 83 year old female presents with dizziness over the course of the last several days. She has not wanted to get out of bed. Patient has not been wanting to eat or drink. Patient denies chest pain, shortness of breath, or headache. She does have a CORRECTIONAL FACILITY PSYCHIATRIST shunt that was placed in 2017 for NPH. She has been doing relatively well since that time. Patient's family reports that she was particularly dizzy today which is what prompted her visit to the ED. She was given meclizine in the ED which resolved the dizziness. At baseline, patient is functional. She performs the majority of her own ADL's. It has only been over the course of the last week that she has remained immobile and unable to care for herself. - Pertinent findings General: Alert, no acute distress HEENT: Dry MM, edentulous Card: RRR, No murmurs Resp: CTA, no acute respiratory distress Abdomen: Soft, non-tender Ext: Right knee and popliteal fossa tender to palpation, no surrounding erythema. Appears mildly swollen compared to left. Skin: Warm and dry. Poor turgor. - Plan Date/Time: 11/11/18 1215 I, Heather Edge, have evaluated this patient and agree with findings/plan as outlined by environmental health and safety intern resident. Pertinent changes/additions are listed here. Mild dehydration - 1L fluid bolus given in ED - Continue maintenance fluids - Internal Grinder Set Up Operator and speech therapy consult - Patient has had minimal PO intake over last week - Puree diet given lack of dentures Acute kidney injury - Baseline Cr from prior labs WNL - Likely 2/2 dehydration - 1 L NS bolus given in ED - Continue maintenance fluids - Monitor BMP Deconditioning - PT/OT consult - Patient reportedly able to perform some ADL's at home prior to this past week Right lower extremity DVT - Discussed risks and benefits of anticoagulation with patient's mPOA at length ; opting for anticoagulation - Will start BID eliquis and dose based on age and renal function - Evident on venous doppler DM type II - Continue home medication, but will renally dose medication - Mild SSI - ACHS accuchecks - CC diet HTN - Will hold lisinopril given TANNER - Will restart once kidney function improved - Hydralazine PRN SBP >180 HLD - Continue statin Dizziness - Resolved with meclizine - Will give meclizine PRN - If vertigo/dizziness returns, would benefit from re-evaluation - Likely 2/2 dehydration Full - No orthostatics done prior to rehydration NPH s/p CORRECTIONAL FACILITY PSYCHIATRIST shunt - CT reveals no dysfunction of CORRECTIONAL FACILITY PSYCHIATRIST shunt - CORRECTIONAL FACILITY PSYCHIATRIST shunt placed 2016, patient has not had any problems since that time Dementia - Patient on donepizil DVT PPX: Eliquis PT/OT/Speech Code: DNAR; discussed with patient and patient's family, including mPOA Dispo: Obs medical. Anticipate LOS <48 hours.
[2018-11-11] MEDS ORDERED: Acetaminophen 325 MG TAB PO PRN (13:32)
[2018-11-11] MEDS ORDERED: Famotidine 20 MG TAB PO PRN (13:32)
[2018-11-11] MEDS ORDERED: Senokot S 8.6-50 MG TAB PO PRN (13:32)
[2018-11-11] MEDS ORDERED: Ondansetron PF 4 MG/2 ML Vial IVP PRN (13:58)
[2018-11-11] MEDS ORDERED: Meclizine HCl 25 MG TAB PO PRN (13:59)
[2018-11-11] MEDS ORDERED: Ondansetron ODT 4 MG TAB PO PRN (13:59)
[2018-11-11] MEDS ORDERED: Dextrose 5% in Water 1,000 ML IV PRN (14:04)
[2018-11-11] MEDS ORDERED: Dextrose 50% Abboject 50 ML SYRINGE SLOW IVP PRN (14:04)
[2018-11-11] MEDS ORDERED: HumaLOG 300 UNITS/3 ML VIAL SC PRN (14:04)
[2018-11-11] MEDS ORDERED: Labetalol HCl 100 MG/20 ML VIAL SLOW IVP PRN (14:08)
--- NOTE | 2018-11-11 14:35 | RAD ---
Exam: Right knee 4 views: HISTORY: Right knee pain FINDINGS: Heterogeneous bony demineralization. Tricompartment arthrosis and degenerative changes most marked in volving the lateral compartment. No acute fracture or dislocation. Several areas of posterior ossification possibly intra-articular bodies, prominent hypertrophic osteophytosis, or synovial osteo chondromas. IMPRESSION: Severe degenerative changes most marked involving the lateral compartment. Bone demineralization. No acute fracture or dislocation.
[2018-11-11 15:28] VITALS: BMI 29.2
--- NOTE | 2018-11-11 15:41 | ULT ---
EXAM: Bilateral lower extremity venous duplex ultrasound with color and spectral Doppler imaging: HISTORY: Right knee pain COMPARISON: None FINDINGS: Exam performed from the groin to the ankle including the visualized greater saphenous, common femoral , superficial femoral, profunda femoral, popliteal, trifurcation, and posterior tibial veins. There is nonocclusive thrombus in the left popliteal vein. Nearly completely obstructing thrombus in the left posterior tibial vein. The remainder of the study appears unremarkable. IMPRESSION: Nearly totally obstructing thrombus in the left posterior tibial vein and nonocclusive thrombus in th e left popliteal vein. These results were discussed with patient's nurse, Ashly Dong, at 3:27 PM by the information technology advisor guicho.
[2018-11-11] MEDS: glipiZIDE 5 MG TAB PO SCH (17:36)
[2018-11-11] MEDS: Sodium Chloride 0.9% 1,000 ML IV SCH (17:37)
[2018-11-11] MEDS ORDERED: hydrALAZINE 20 MG/ML VIAL SLOW IVP PRN (17:59)
[2018-11-11] MEDS: Atorvastatin Calcium 10 MG TAB PO SCH (21:30)
[2018-11-11] MEDS: Apixaban 2.5 MG TAB PO SCH (21:30)
[2018-11-12] MEDS: Sodium Chloride 0.9% 1,000 ML IV SCH ×3 (04:56→20:45)
--- NOTE | 2018-11-12 06:21 | PDOC.FM ---
- Subjective Subjective: She says her knee hurts. Had xray yesterday and shows no fracture. She has Tylenol on PRN. Encouraged eating and working with PT today. - Objective MAR Reviewed: Yes Vital Signs & Weight: Vital Signs (12 hours) Temp Pulse Resp BP Pulse Ox 11/12/18 04:00 97.8 F 61 20 117/55 L 93 L 11/12/18 00:00 97.8 F 68 20 119/59 L 96 11/11/18 20:00 96 11/11/18 19:44 97.6 F 80 20 116/57 L 96 Weight Weight 82 kg Result Diagrams: 11/11/18 09:56 11/12/18 05:41 Phys Exam - Physical Examination Constitutional: NAD HEENT: PERRLA, moist MMs, oral pharynx no lesions Neck: no nodes, full ROM Respiratory: clear to auscultation bilateral Cardiovascular: RRR, no significant murmur Gastrointestinal: soft, non-tender, no distention, positive bowel sounds Musculoskeletal: no edema, pulses present Neurological: moves all 4 limbs Psychiatric: normal affect Skin: no rash Dx/Plan (1) Acute kidney injury Code(s): N17.9 - ACUTE KIDNEY FAILURE, UNSPECIFIED Status: Acute (2) Constipation Code(s): K59.00 - CONSTIPATION, UNSPECIFIED Status: Acute (3) DVT (deep venous thrombosis) Code(s): I82.409 - ACUTE EMBOLISM AND THOMBOS UNSP DEEP VN UNSP LOWER EXTREMITY Status: Acute (4) Right knee pain Code(s): M25.561 - PAIN IN RIGHT KNEE Status: Acute (5) HLD (hyperlipidemia) Code(s): E78.5 - HYPERLIPIDEMIA, UNSPECIFIED Status: Acute (6) DM2 (diabetes mellitus, type 2) Status: Chronic Qualifiers: Diabetes mellitus complication status: with hyperglycemia (7) HTN (hypertension) Code(s): I10 - ESSENTIAL (PRIMARY) HYPERTENSION Status: Chronic Qualifiers: Hypertension type: essential hypertension Qualified Code(s): I10 - Essential (primary) hypertension (8) NPH (normal pressure hydrocephalus) Code(s): G91.2 - (IDIOPATHIC) NORMAL PRESSURE HYDROCEPHALUS Status: Chronic - Plan Plan: Patient is a 83F with PMHx of HLD, HTN, DM2, and normal pressure hydrocephalus s /p PROTECTION AGENT shunt placed in 2017 presenting with TANNER likely 2/2 dehydration and right knee pain 1. TANNER likely 2/2 dehydration -Creatinine 1.81 up from 0.62 in 2017 -patient had been dizzy, the 1L and meclizine she received in the ED seemed to help -patient's daughter states she has had decreased PO intake the last several days because she has been bed-bound 2/2 dizziness and would eat and drink some of what was given to her -IVF -continue to monitor BMP -Cre 1.06 today 2. R DVT -patient has a remote hx of R knee surgery -R knee and posterior calf ttp -patient and patient's daughter deny recent fall -venous doppler positive for DVT -R knee xray shows degenerative changes -risks and benefits of anticoagulation discussed with CARYL (son). He elected to start eliquis tonight. Will increase to 5 BID when her kidney function improves 3. Deconditioning -patient has been bed-bound the last 2-3 days -PT/OT consult 4. Constipation -patient has not had bm in a few days -abdomen firm and lower abdomen ttp -sennokot ordered, continue to monitor 5. S/P PROTECTION AGENT Shunt -CT showed no acute changes to dilation of ventricles at this time, with intracranial and intrathoracic portions of shunt in place -stable 6. HTN -bp 128/63 in the ED -hold home lisinopril until TANNER resolves -prn hydralyzine 7. HLD -continue home statin: stimvastatin -continue home asa 8. DM2 -hold home glipizide for now, due to TANNER -BG 320 in ED -mild ISS -accuchecks ACHS -BG good overnight -continue to monitor 9. Cognitive Decline -continue home donepezil Diet: KAMI juarez DVT: Eliquis Code: DNR Dispo: obs for TANNER management with fluids and evaluation for DVT. Will consider sending her home tomorrow.
[2018-11-12 06:27] LABS: Anion Gap 10 mmol/L (10-20); BUN (Urea Nitrogen) 32 mg/dL (9.8-20.1); Calc. Creatinine Clearance 50 mL/min (70-130); Carbon Dioxide 27 mmol/L (23-31); Chloride 105 mmol/L (98-107); Estimated GFR-MDRD 49; Glucose 90 mg/dL (83-110); Potassium 3.3 mmol/L (3.5-5.1); Sodium 139 mmol/L (136-145)
[2018-11-12] MEDS: glipiZIDE 5 MG TAB PO SCH ×2 (07:48→16:54)
[2018-11-12] MEDS: Aspirin 81 mg Enteric Coated Tablet PO SCH (07:49)
[2018-11-12] MEDS: Donepezil HCl 10 MG TAB PO SCH (07:49)
[2018-11-12] MEDS: Bisacodyl 5 MG TAB PO SCH (07:49)
[2018-11-12] MEDS ORDERED: Enoxaparin Sodium 30 MG/0.3 ML SYRINGE SC SCH (09:00)
[2018-11-12] MEDS: Apixaban 2.5 MG TAB PO SCH ×2 (09:21→20:18)
--- NOTE | 2018-11-12 12:40 | HP ---
HISTORY OF PRESENT ILLNESS: I have examined the patient. I have discussed the case with Dr. Roxanne Owen and agree with her assessment and plan. The patient is an 83-year-old white female with a history of normal-pressure hydrocephalus status post CLEANING SUPERVISOR shunt in 2017. She has been experiencing a gradual cognitive decline over the last several years. She presented because of "being dizzy" for the last 2 to 3 days. She has stopped getting out of bed because she was dizzy and her speech has decreased. She has also had poor p.o. intake. PHYSICAL EXAMINATION: VITAL SIGNS: Her blood pressure is 128/60, heart rate 97, respirations 16. She is afebrile and her room air pulse ox is 95%. GENERAL: The patient is not very verbal, but appears in no acute distress. HEENT: Her mucous membranes are dry. NECK: Supple. CARDIAC: Heart rhythm regular. No gallop or murmur noted. LUNGS: Clear. No distress. ABDOMEN: Flat and soft. NEUROLOGICAL: No focal deficits. LABORATORY DATA: CBC; white count 8600, hemoglobin 14.7, hematocrit 44.8, MCV 93.4. Chemistry; sodium 139, potassium 3.3, chloride 105, bicarb 27, BUN 32, creatinine 1.06. Her troponin is negative. Glucose is 158. IMAGING STUDIES: A CT of the brain showed CLEANING SUPERVISOR shunt catheter and appears to be intact. There is no acute hemorrhage or infarct evident. Chest x-ray, no acute cardiopulmonary findings. ASSESSMENT AND PLAN: Acute kidney injury, probably from poor p.o. intake. Type 2 diabetes with A1c of 7. Hypertension, knee pain, and history of deep vein thrombosis. We will try to increase her p.o. intake and give her judicious fluids. She is also deconditioned, and we will ask for a PT/OT consult. Her code status is DNR. Job ID: [id number]
[2018-11-12] MEDS: Atorvastatin Calcium 10 MG TAB PO SCH (20:18)
[2018-11-13 05:47] LABS: Anion Gap 10 mmol/L (10-20); BUN (Urea Nitrogen) 17 mg/dL (9.8-20.1); Calc. Creatinine Clearance 61 mL/min (70-130); Carbon Dioxide 26 mmol/L (23-31); Chloride 109 mmol/L (98-107); Estimated GFR-MDRD 61; Glucose 102 mg/dL (83-110); Potassium 3.3 mmol/L (3.5-5.1); Sodium 142 mmol/L (136-145)
[2018-11-13] MEDS: Sodium Chloride 0.9% 1,000 ML IV SCH ×2 (05:49→15:07)
--- NOTE | 2018-11-13 06:12 | PDOC.FM ---
- Subjective Subjective: No more dizziness. No complaints currently. Family wants to get her home with home health. - Objective MAR Reviewed: Yes Vital Signs & Weight: Vital Signs (12 hours) Temp Pulse Resp BP Pulse Ox 11/13/18 04:00 98.5 F 64 16 169/70 H 97 11/13/18 00:00 98.8 F 76 16 174/74 H 96 11/12/18 20:00 97.9 F 83 16 162/74 H 95 Weight Weight 82 kg I&O: 11/11/18 11/12/18 11/13/18 06:59 06:59 06:59 Intake Total 720 Balance 720 Result Diagrams: 11/11/18 09:56 11/13/18 04:42 Phys Exam - Physical Examination Constitutional: NAD HEENT: moist MMs Neck: full ROM Respiratory: clear to auscultation bilateral Cardiovascular: RRR, no significant murmur Gastrointestinal: soft, non-tender, positive bowel sounds Musculoskeletal: no edema, pulses present Neurological: non-focal, normal sensation Psychiatric: normal affect Skin: no rash Dx/Plan (1) Acute kidney injury Code(s): N17.9 - ACUTE KIDNEY FAILURE, UNSPECIFIED Status: Acute (2) Constipation Code(s): K59.00 - CONSTIPATION, UNSPECIFIED Status: Acute (3) DVT (deep venous thrombosis) Code(s): I82.409 - ACUTE EMBOLISM AND THOMBOS UNSP DEEP VN UNSP LOWER EXTREMITY Status: Acute (4) Right knee pain Code(s): M25.561 - PAIN IN RIGHT KNEE Status: Acute (5) HLD (hyperlipidemia) Code(s): E78.5 - HYPERLIPIDEMIA, UNSPECIFIED Status: Acute (6) DM2 (diabetes mellitus, type 2) Status: Chronic Qualifiers: Diabetes mellitus complication status: with hyperglycemia (7) HTN (hypertension) Code(s): I10 - ESSENTIAL (PRIMARY) HYPERTENSION Status: Chronic Qualifiers: Hypertension type: essential hypertension Qualified Code(s): I10 - Essential (primary) hypertension (8) NPH (normal pressure hydrocephalus) Code(s): G91.2 - (IDIOPATHIC) NORMAL PRESSURE HYDROCEPHALUS Status: Chronic - Plan Plan: Patient is a 83F with PMHx of HLD, HTN, DM2, and normal pressure hydrocephalus s /p COMPUTER HELP DESK SPECIALIST shunt placed in 2017 presenting with TANNER likely 2/2 dehydration and right knee pain 1. TANNER likely 2/2 dehydration- Resolved -Creatinine 1.81 up from 0.62 in 2017 -patient had been dizzy, the 1L and meclizine she received in the ED seemed to help -patient's daughter states she has had decreased PO intake the last several days because she has been bed-bound 2/2 dizziness and would eat and drink some of what was given to her -IVF -continue to monitor BMP -Cre 0.88 today 2. R DVT -patient has a remote hx of R knee surgery -R knee and posterior calf ttp -patient and patient's daughter deny recent fall -venous doppler positive for DVT -R knee xray shows degenerative changes -risks and benefits of anticoagulation discussed with CARYL (son). He elected to start eliquis 5 mg BID 3. Deconditioning -patient has been bed-bound the last 2-3 days -PT/OT consult -PT: Recommends Rehab or home with HH. 4. Constipation -patient has not had bm in a few days -abdomen firm and lower abdomen ttp -sennokot ordered, continue to monitor 5. S/P COMPUTER HELP DESK SPECIALIST Shunt -CT showed no acute changes to dilation of ventricles at this time, with intracranial and intrathoracic portions of shunt in place -stable 6. HTN -bp 128/63 in the ED -Restarted Lisinopril -BP 116/78-169/70 -prn hydralyzine 7. HLD -continue home statin: stimvastatin -continue home asa 8. DM2 -hold home glipizide for now, due to TANNER -BG 320 in ED -mild ISS -accuchecks ACHS -BG good overnight -continue to monitor 9. Cognitive Decline -continue home donepezil Diet: KAMI juarez DVT: Karmen Code: DNR Dispo: Consulted case management to get her sent home with home health. Hopefully, home later today.
[2018-11-13] MEDS ORDERED: Potassium Chloride 20 MEQ TAB PO SCH (07:45)
[2018-11-13] MEDS: Aspirin 81 mg Enteric Coated Tablet PO SCH (08:05)
[2018-11-13] MEDS: Bisacodyl 5 MG TAB PO SCH (08:05)
[2018-11-13] MEDS: glipiZIDE 5 MG TAB PO SCH ×2 (08:05→16:37)
[2018-11-13] MEDS: Donepezil HCl 10 MG TAB PO SCH (08:06)
[2018-11-13] MEDS ORDERED: Apixaban 5 MG TAB PO SCH (09:00)
[2018-11-13] MEDS ORDERED: Lisinopril 20 MG TAB PO SCH (09:00)
[2018-11-13] MEDS ORDERED: Lisinopril 5 MG TAB PO SCH (09:00)
[2018-11-13] MEDS ORDERED: Donepezil HCl 5 MG TAB PO SCH (09:00)
--- NOTE | 2018-11-13 11:09 | PRG ---
DATE OF SERVICE: 11/13/2018 Ms. Fine's TANNER is now resolved. The patient and her family would like to be discharged home with home health care. This will be arranged for later today or tomorrow. Job ID: [id number]
[2018-11-13 16:04] VITALS: BP 194/76; TEMP 97.7
[2018-11-13] MEDS ORDERED: Simvastatin 20 MG TAB PO SCH (21:00)
--- NOTE | 2018-11-16 08:32 | DIS ---
DATE OF ADMISSION: 11/11/2018 DATE OF DISCHARGE: 11/13/2018 RESIDENT: Buddy Choudhary MD ADMITTING ATTENDING: Jonh Barney MD DISCHARGE ATTENDING: River Barrera MD CONSULTS: PT, OT, Speech, and case management. PROCEDURES: None. PRIMARY DIAGNOSES: 1. Acute kidney injury, likely secondary to dehydration. 2. Deep venous thrombosis in right leg. SECONDARY DIAGNOSES: 1. Deconditioning. 2. Constipation. 3. Status post ROLL CAPPER shunt. 4. Hypertension. 5. Hyperlipidemia. 6. Diabetes type 2. 7. Cognitive decline. DISCHARGE MEDICATIONS: She was discharged home on Eliquis 5 mg b.i.d. and her regular home medications. DISCONTINUED MEDICATIONS: None. HISTORY OF PRESENT ILLNESS: The patient is an 83-year-old with past medical history of normal-pressure hydrocephalus status post ROLL CAPPER shunt in 2017, hypertension, hyperlipidemia, diabetes type 2, cognitive decline, over the last several years without any official diagnosis of dementia. She is accompanied by her daughter who states that the patient has been complaining of dizziness for 2-3 days. She says she is not getting out of bed due to the dizziness. Her speech has decreased. She can usually carry on a conversation, but has now started speaking in short phrases. She was admitted on 11/11 to the hospital and given IV fluids. Speech and OT saw her, and change din her diet was made to mechanically soft. PT recommended home health. A DVT was found in her R leg and she was started on Eliquis. She was discharged after her electrolyte abnormalities were corrected and dizziness resolved with home health. DISPOSITION: Stable. DISCHARGE INSTRUCTIONS: Location: Home with home health. Diet: Mechanically soft. Activity: Ambulate with walker. Fall precautions. Followup: Follow up with Dr. Zeng in 7 days. Job ID: [id number] MTDD
--- NOTE | 2018-11-19 22:10 | EKG ---
Test Reason : Blood Pressure : / mmHG Vent. Rate : 063 BPM Atrial Rate : 063 BPM P-R Int : 220 ms QRS Dur : 076 ms QT Int : 430 ms P-R-T Axes : 059 003 064 degrees QTc Int : 440 ms Sinus rhythm with 1st degree A-V block Otherwise normal ECG Confirmed by DION HARDING D.O. ([id number]), managing editor YAEL ESPINOSA ([id number]) on 11/19/2018 10:10:00 PM Referred By: Confirmed By:DION HARDING D.O.
--- NOTE | 2018-11-19 22:10 | EKG ---
Test Reason : Blood Pressure : / mmHG Vent. Rate : 101 BPM Atrial Rate : 098 BPM P-R Int : 000 ms QRS Dur : 084 ms QT Int : 390 ms P-R-T Axes : 000 -39 077 degrees QTc Int : 505 ms Atrial fibrillation with rapid ventricular response Left axis deviation Cannot rule out Inferior infarct , age undetermined Cannot rule out Anterior infarct , age undetermined Abnormal ECG Confirmed by DION HARDING D.O. ([id number]), assignment editor YAEL ESPINOSA ([id number]) on 11/19/2018 10:09:56 PM Referred By: Confirmed By:DION HARDING D.O.
== END 2018-11-13 18:14 | disposition home health service (06) ==
LOC: ERS 09:14 → T4-A 12:18
PROVIDERS: ADMIT Family Medicine; ATTEND Family Medicine
DX: N17.9 Acute kidney failure, unspecified (principal); I82.431 Acute embolism and thrombosis of right popliteal vein; I82.441 Acute embolism and thrombosis of right tibial vein; K59.00 Constipation, unspecified; G91.2 (Idiopathic) normal pressure hydrocephalus; I10 Essential (primary) hypertension; E78.5 Hyperlipidemia, unspecified; E11.65 Type 2 diabetes mellitus with hyperglycemia; E86.0 Dehydration; F03.90 Unspecified dementia, unspecified severity, without behavioral disturbance, psychotic disturbance, mood disturbance, and anxiety; R41.82 Altered mental status, unspecified; R42 Dizziness and giddiness; Z66 Do not resuscitate; Z79.84 Long term (current) use of oral hypoglycemic drugs; Z79.899 Other long term (current) drug therapy; Z88.0 Allergy status to penicillin; Z98.2 Presence of cerebrospinal fluid drainage device
CPT/HCPCS: 51701; 70450; 71045; 73564; 80048 ×2; 80053; 82140; 82550; 82962 ×3; 83036; 83690; 84484; 85025; 93005; 93970; 94760; 96360; 96361 ×4; 97139 ×2; 99285; G0378 ×4; 36415; 36416; 81003; 81015; A4353; J8597